=== PATIENT | male | born 1950 | race Caucasian/White ===

== ENCOUNTER 2018-03-15 17:33 | Inpatient (IN) | payer MEDICARE, OTHER ==
[2018-03-15 18:39] LABS: #Eosinphils 0.1 thou/uL (0.0-0.7); #Lymphocytes 1.1 thou/uL (1.20-3.40); #Monocytes 0.6 thou/uL (0.11-0.59); #Neutrophils 7.2 thou/uL (1.40-6.50); %Basophils 0.5 % (0.0-1.0); %Eosinophils 0.7 % (0.0-10.0); %Monocytes 6.2 % (0.0-10.0); %Neutrophils 80.6 % (42.0-75.0); Hemoglobin 14.5 g/dL (14.0-18.0); Mean Corpuscular HGB CONC 33.5 g/dL (32.0-36.0); Mean Corpuscular Hemoglobin 30.8 pg (27.0-31.0); Mean Corpuscular Volume 91.8 fL (78.0-98.0); Platelet Count 227 thou/uL (130-400); RBC Distribution Width 13.2 % (11.5-14.5); Red Blood Cell (RBC) Count 4.71 mill/uL (4.70-6.10)
[2018-03-15 18:47] LABS: PTT 29.3 SEC (22.9-36.1); Prothrombin Time 13.2 SEC (12.0-14.7)
[2018-03-15 18:54] LABS: ALT (SGPT) 19 U/L (8-55); AST (SGOT) 17 U/L (5-34); Albumin 3.9 g/dL (3.4-4.8); Alkaline Phosphatase 107 U/L (40-150); Anion Gap 13 mmol/L (10-20); BUN (Urea Nitrogen) 13 mg/dL (8.4-25.7); Bilirubin, Total 0.7 mg/dL (0.2-1.2); Calc. Creatinine Clearance 0 mL/min (70-130); Calcium 9.3 mg/dL (7.8-10.44); Carbon Dioxide 24 mmol/L (23-31); Chloride 100 mmol/L (98-107); Estimated GFR-MDRD 74; Globulin 3.1 g/dL (2.4-3.5); Glucose 97 mg/dL (80-115); Potassium 4.6 mmol/L (3.5-5.1); Sodium 132 mmol/L (136-145)
[2018-03-15] MEDS ORDERED: Ondansetron PF 4 MG/2 ML Vial IVP PRN (23:28)
[2018-03-15] MEDS ORDERED: Acetaminophen 325 MG TAB PO PRN (23:28)
[2018-03-15] MEDS ORDERED: Ondansetron ODT 4 MG TAB SL PRN (23:28)
[2018-03-15] MEDS ORDERED: Sodium Chloride 0.9% 1,000 ML IV SCH (23:30)
[2018-03-15 23:40] VITALS: BMI 25.0
[2018-03-16] MEDS ORDERED: diphenhydrAMINE 50 MG/ML VIAL IVP PRN (02:16)
[2018-03-16] MEDS ORDERED: Albuterol Sulfate 1.25 MG/3 ML NEB NEB PRN (02:19)
[2018-03-16] MEDS: Famotidine/PF 20 mg/2ml Vial SLOW IVP SCH ×2 (08:39→20:42)
[2018-03-16] MEDS: NIFEdipine XL 60 MG TAB PO SCH (08:39)
[2018-03-16] MEDS: Nebivolol HCl 5 MG TAB PO SCH (08:39)
[2018-03-16] MEDS ORDERED: Non-Formulary Item 1 EACH (Fluticasone/Vilanterol [Breo Ellipta 200-25 Mcg Inh] 1 PUFF) INH SCH (09:00)
[2018-03-16] MEDS: Ipratropium Bromide 2.5 ml Neb NEB SCH ×3 (13:38→23:17)
--- NOTE | 2018-03-16 14:42 | HP ---
PRIMARY CARE PHYSICIAN: Dr. Richardson CODE STATUS: Full code. TIME OF EVALUATION: 2 a.m. CHIEF COMPLAINT: Tongue swelling. HISTORY OF PRESENT ILLNESS: This is a 67-year-old male patient with past medical history of hypertension; previous history of angioedema, on benazepril; came to the hospital after having swelling of the throat and the tongue that started about 2 a.m. The patient visited his primary care doctor, who sent him to the ER, symptoms are severe, likely triggered by ALEXANDRO inhibitor allergy. No alleviating factors. Symptoms are being improved by itself. REVIEW OF SYSTEMS: CONSTITUTIONAL: No fever, chills, or generalized weakness. RESPIRATORY: No cough, sputum production, or shortness of breath. The patient has tongue swelling. CARDIOVASCULAR: No chest pain or palpitation. GASTROINTESTINAL: No nausea. No vomiting, diarrhea, or abdominal pain. AUTHORS MOTIVATIONAL: No dizziness, headache, or feeling lightheaded. GENITOURINARY: No burning on urination. EXTREMITIES: No leg swelling. All other systems were reviewed and negative, except for the findings as mentioned above. PAST MEDICAL HISTORY: As mentioned in the HPI. FAMILY HISTORY: Father with lung cancer. Mother with CVA. PAST SURGICAL HISTORY: Left knee surgery, hernia repair. PSYCHIATRIC HISTORY: No previous psych history. SOCIAL HISTORY: The patient drinks every day, less than 5 drinks per day. The patient is a former smoker. ALLERGIES: KNOWN ALLERGIES TO ALEXANDRO INHIBITOR REPORTED MEDICATIONS: Bystolic, nifedipine. PHYSICAL EXAMINATION: VITAL SIGNS: Blood pressure 179/91 with a heart rate 73, respiratory rate 16, temperature 98.3, pain 0/10, and oxygen saturation 97% on room air. GENERAL APPEARANCE: The patient is alert, oriented, not in acute distress. HEENT: Normal conjunctivae. Moist oral mucosa. Anicteric. NECK: No JVD. The patient has tongue swelling that has improved. RESPIRATORY: Bilateral air entry. No rales. No wheezing. Symmetric expansion. CARDIOVASCULAR: Normal rate and regular rhythm. No murmurs. No gallop. No edema. ABDOMEN: Soft. Normal bowel sounds. MUSCULOSKELETAL: He has baseline range of motion and strength. No tenderness. SKIN: Warm, intact. No pallor. No rash. No redness. EXTREMITIES: Peripheral pulses are present. Capillary refill seems to be intact. NEUROLOGIC: No evidence of any new focal weakness. Baseline speech. Cranial nerves seems to be intact. PSYCHIATRIC: The patient is in good mood. No anxiety. Oriented. Optimal judgement. LABORATORY DATA: White count 9.0, hemoglobin 14.5, platelets 237. Coagulation, PT 13.2, INR 1.0, PTT 39.3. Chemistry, sodium 132, potassium 4.3, chloride 100, carbon dioxide 24, anion gap 13, BUN 13, creatinine 1.0, GFR 94, glucose 97, calcium 9.3, total bilirubin 0.7. AST 17, ALT 19, alkaline phosphatase 107. Serum total protein 7.0, albumin 3.9, globulin 3.1, albumin/globulin ratio is 1.3. Complement C4 is 16.9. ASSESSMENT AND PLAN: The patient will be placed in the hospital with the following medical problems: 1. Angioedema, likely secondary to ALEXANDRO inhibitors. The patient has improved. We will continue to monitor. Hold ALEXANDRO inhibitors. 2. Benign prostatic hypertrophy, this problem is chronic, seems to be stable, reconcile home medications, adjust treatment as needed. 3. Hyperlipidemia. Reconcile home medications. Continue atorvastatin. Low cholesterol diet is advised. 4. Hypertension, that is uncontrolled, reconcile home medications, adjust treatment as needed. 5. Deep vein thrombosis prophylaxis. Job ID: [id number]
--- NOTE | 2018-03-16 14:49 | PDOC.PN ---
- Subjective Encounter Start Date: 03/16/18 Encounter Start Time: 14:30 Subjective: f/u for angioedema after taking Benazepril for 6yrs. Received -: Solumedrol, Benadryl and Pepcid. Feels much better and tongue -: swelling resolved. No CP, SOB - Objective MAR Reviewed: Yes Vital Signs & Weight: Vital Signs (12 hours) Temp Pulse Resp BP Pulse Ox 03/16/18 13:38 67 16 03/16/18 11:42 98.1 F 75 18 158/77 H 97 03/16/18 08:24 98 F 74 18 167/82 H 97 03/16/18 04:00 98.8 F 73 19 155/83 H 95 Weight Weight 174 lb 6.4 oz I&O: 03/15/18 03/16/18 03/17/18 06:59 06:59 06:59 Intake Total 1250 Output Total 750 Balance 500 Result Diagrams: 03/15/18 18:05 03/15/18 18:05 Additional Labs: Laboratory Tests 03/15/18 18:05 Complement C4 16.90 EKG Reviewed by me: Yes (Tele - SR) Phys Exam - Physical Examination Constitutional: NAD no glossal edema HEENT: PERRLA, sclera anicteric, oral pharynx no lesions mild edema in submandibular region Neck: no nodes, no JVD, supple, full ROM Respiratory: no wheezing, no rales, no rhonchi, clear to auscultation bilateral S1, S2 Cardiovascular: RRR, no significant murmur, no rub, gallop Gastrointestinal: soft, non-tender, no distention, positive bowel sounds Musculoskeletal: no edema, pulses present Neurological: normal sensation, moves all 4 limbs Psychiatric: normal affect, A&O x 3 Skin: normal turgor, cap refill <2 seconds Dx/Plan (1) Angioedema Code(s): T78.3XXA - ANGIONEUROTIC EDEMA, INITIAL ENCOUNTER Status: Acute Comment: Secondary to ALEXANDRO-i, continue off all ALEXANDRO-i and ARB's, continue Solumedrol, Benadryl and Pepcid, improving (2) HTN (hypertension) Code(s): I10 - ESSENTIAL (PRIMARY) HYPERTENSION Status: Chronic Qualifiers: Hypertension type: essential hypertension Qualified Code(s): I10 - Essential (primary) hypertension Comment: Continue Bystolic and Nifedipine, add Hydralazine 25mg BID (3) COPD (chronic obstructive pulmonary disease) Status: Chronic Comment: No exacerbation, continue pulmonary supportive measures (4) CAD (coronary artery disease) Code(s): I25.10 - ATHSCL HEART DISEASE OF [place] CORONARY ARTERY W/O ANG PCTRS Status: Chronic Comment: Continue Lipitor, Bystolic - Plan plan discussed w/ family, out of bed/ambulate Stable currently -: Continue Solumedrol another 24h -: Continue Pepcid/Benadryl -: Start Hydralazine 25mg BID -: Likely home in am * .
[2018-03-16] MEDS: Mometasone/Formoterol 120 PUFF INHALER INH SCH (19:20)
[2018-03-16] MEDS: hydrALAZINE 25 MG TAB PO SCH (20:42)
[2018-03-16] MEDS ORDERED: Aspirin 325 MG TAB PO SCH (21:00)
[2018-03-16] MEDS ORDERED: Non-Formulary Item 1 EACH (Tiotropium Bromide [Spiriva Respimat] 2 PUFF) INH SCH (21:00)
[2018-03-16] MEDS ORDERED: Atorvastatin Calcium 40 MG TAB PO SCH (21:00)
[2018-03-16] MEDS ORDERED: Latanoprost 0.005% Ophth Soln 2.5 ml Bottle R EYE SCH (21:00)
[2018-03-16] MEDS ORDERED: Tamsulosin HCl 0.4 MG CAP PO SCH (21:00)
[2018-03-17] MEDS: Ipratropium Bromide 2.5 ml Neb NEB SCH (07:08)
[2018-03-17] MEDS: Mometasone/Formoterol 120 PUFF INHALER INH SCH (07:09)
[2018-03-17 07:36] VITALS: BP 174/85; TEMP 97.8
[2018-03-17] MEDS: Nebivolol HCl 5 MG TAB PO SCH (08:08)
[2018-03-17] MEDS: hydrALAZINE 25 MG TAB PO SCH (08:08)
[2018-03-17] MEDS: Famotidine/PF 20 mg/2ml Vial SLOW IVP SCH (08:08)
[2018-03-17] MEDS: NIFEdipine XL 60 MG TAB PO SCH (08:09)
--- NOTE | 2018-03-18 06:50 | DIS ---
DATE OF ADMISSION: 03/15/2018 DATE OF DISCHARGE: 03/17/2018 DISCHARGE DIAGNOSES: 1. Angioedema secondary to ALEXANDRO inhibitors, resolving. 2. Hypertension, stable. 3. Chronic obstructive pulmonary disease, stable. 4. Coronary artery disease, chronic, and stable. PERTINENT LAB AND X-RAY FINDINGS: Complete metabolic profile within normal limits. CBC showed a white blood cell count of 9.0, hemoglobin 14.5, hematocrit 43, platelet count 227, with 81% neutrophils. C4 level 16.9. CONSULTATIONS: None. HOSPITAL COURSE: The patient was admitted to the telemetry unit after initially presenting with tongue and throat swelling in the context of ALEXANDRO inhibitor use. The patient was treated initially with IV Solu-Medrol, intravenous normal saline, Benadryl, Pepcid, and given general pulmonary supportive measures. The patient did not show airway compromise, however, was observed due to the potential for airway compromise. The patient was discontinued on all ALEXANDRO inhibitors and ARBs with instructions to discontinue these medications indefinitely. The patient transitioned from Solu-Medrol to prednisone with a prednisone tapering regimen for discharge. The patient was able to tolerate regular oral intake and maintain his airway with O2 saturations greater than 90% on room air. Glossal edema had resolved, and the patient remained clinically stable. I have examined the patient at the time of discharge and discussed followup instructions. The patient overall is clinically stable and ready for discharge on 03/17/2018. DISCHARGE MEDICATIONS: 1. Enteric-coated aspirin 325 mg p.o. at bedtime. 2. Lipitor 40 mg p.o. at bedtime. 3. Breo Ellipta 200/25 mcg one puff inhaled daily. 4. Xalatan 0.005% ophthalmic solution 1 drop to the right eye at bedtime. 5. Bystolic 5 mg p.o. daily. 6. Nifedipine extended release 60 mg p.o. daily. 7. Flomax 0.4 mg p.o. at bedtime. 8. Spiriva Respimat 2 puffs inhaled at bedtime. 9. Benadryl 25 mg p.o. q.6 hours p.r.n. 10. Hydralazine 25 mg p.o. b.i.d. 11. Prednisone 10 mg, take 2 tablets p.o. b.i.d. x3 days, followed by 3 tablets p.o. daily x3 days, followed by 2 tablets p.o. daily x3 days. FOLLOWUP: The patient is to follow up with his primary care provider, Dr. Terrie Richardson within 7 days of discharge. CONDITION ON DISCHARGE: Stable. ACTIVITY: Ad jerzy. DIET: Heart healthy. CODE STATUS: Full. DISPOSITION: Home on 03/17/2018. Job ID: [id number]
== END 2018-03-17 10:55 | disposition home or self-care (01) | DRG 916 ==
LOC: ERS 17:33 → 2NO 21:06
PROVIDERS: ADMIT Internal Medicine; ATTEND Internal Medicine
DX: T78.3XXA Angioneurotic edema, initial encounter (principal); T46.4X5A Adverse effect of angiotensin-converting-enzyme inhibitors, initial encounter; Y92.9 Unspecified place or not applicable; I10 Essential (primary) hypertension; J44.9 Chronic obstructive pulmonary disease, unspecified; I25.10 Atherosclerotic heart disease of native coronary artery without angina pectoris; Z82.3 Family history of stroke; Z80.1 Family history of malignant neoplasm of trachea, bronchus and lung; N40.0 Benign prostatic hyperplasia without lower urinary tract symptoms; E78.5 Hyperlipidemia, unspecified
CPT/HCPCS: 36415; 80053; 85025; 85610; 85730; 86160; 86161; 86850; 86900; 86901; 94640; J1200; J2920; S0028

== ENCOUNTER 2018-10-17 13:38 | Outpatient (CLI) | payer MEDICARE, OTHER ==
--- NOTE | 2018-10-17 15:54 | MRI ---
MRI PELVIS/PROSTATE WITHOUT AND WITH CONTRAST: Date: 10/17/18 HISTORY: Prostate cancer. TECHNIQUE: Multiplanar, multisequence MR images were obtained in the prostate without and with contrast. FINDINGS: Mild hypertrophy of the central gland is seen consistent with BPH. No suspicious low T2 signal lesion is seen within the prostate. No restricted diffusion or low signal on the ADC map is seen in the per ipheral zone of the prostate. The seminal vesicles are intact. The neurovascular bundles are intact. No pelvic adenopathy is seen. Scattered diverticula seen in the visualized colon. No marrow signal abnormality is present. IMPRESSION: PI-RADS Category 2 - low likelihood that a clinically significant cancer is present. POS: C
== END 2018-10-17 13:39 | disposition home or self-care (01) ==
LOC: TBSIIMAG 13:38
PROVIDERS: ATTEND Urology
DX: C61 Malignant neoplasm of prostate (principal)
CPT/HCPCS: 72197; 82565

== ENCOUNTER 2020-03-18 12:43 | Outpatient (CLI) | payer MEDICARE, OTHER ==
[~2020-03-18 12:43] MED LIST: Magnevist 469MG/ML 20 ML VIAL ONE
--- NOTE | 2020-03-19 08:59 | MRI ---
MRI PELVIS WITH AND WITHOUT IV CONTRAST WITH 3D POST PROCESSING ON INDEPENDENT WORK STATION: (prostate) HISTORY: Prostate cancer. COMPARISON: 10/17/2018. FINDINGS: The prostate measures 4.5 x 4.9 x 4 cm with a volume of 46 cc. No focal abnormal area of restricted diffusion is seen in the peripheral zone to suggest malignant pr ocess. No lentiform area of abnormally decreased T2 signal is noted in the transitional zone to suggest a ma lignant process. No focal articular enhancing mass is seen and the prostatic capsule is intact. The seminal vesicles are intact. No pelvic lymphadenopathy is noted. The pelvic sidewall is normal. Visualized portions of the colon demonstrate diverticular disease. No abnormal areas of signal replacement are seen on the T1 weighted sequences of the pelvis to sugges t osseous metastatic disease. IMPRESSION: PIRADS 2: Low (clinically significant prostate cancer is unlikely to be present). POS: OFF
--- NOTE | 2020-03-21 05:53 | MRI ---
MRI PELVIS PROSTATE WITH AND WITHOUT IV CONTRAST WITH 3D POST PROCESSING ON INDEPENDENT WORK STATION: HISTORY: Prostate cancer. COMPARISON: 10/17/2018. FINDINGS: The prostate measures 4.5 x 4.9 x 4 cm with a volume of 46 cc. There is a focal 1 cm area of restricted diffusion in the peripheral zone of the prostatic apex on th e right. No definite evidence of neurovascular bundle involvement is seen. No lentiform area of abnormally decreased T2 signal is noted in the transition zone to suggest malign ant process. The seminal vesicles are intact. No pelvic lymphadenopathy is seen. The pelvic sidewall is normal. Visualized portions of the colon demonstrate diverticular disease. No abnormal areas of signal replacement are seen on the T1 weighted sequences of the pelvis to sugges t osseous metastatic disease. IMPRESSION: PIRADS 4: high (clinically significant cancer is likely). POS: AH
== END 2020-03-18 12:44 | disposition home or self-care (01) ==
LOC: TBSIIMAG 12:43
PROVIDERS: ATTEND Urology
DX: C61 Malignant neoplasm of prostate (principal)
CPT/HCPCS: 72197; 82565; A9579

== ENCOUNTER 2020-05-08 05:48 | Day surgery (SDC) | payer MEDICARE ==
[2020-05-07 09:31] VITALS: BMI 24.8
[2020-05-08] MEDS ORDERED: Fleet Enema 133 ML BOT FS SCH ×2 (06:30→07:00)
[2020-05-08] MEDS ORDERED: Sodium Chloride 0.9% 100 ML ONE (06:33)
[2020-05-08] MEDS ORDERED: cefTRIAXone\\ROCEPHIN 1 GM VIAL ONE (06:33)
[2020-05-08] MEDS ORDERED: Fentanyl 100 MCG/2 ML VIAL ONE (07:03)
[2020-05-08] MEDS ORDERED: Midazolam HCl 2 mg/2 ml Vial ONE (07:03)
[2020-05-08] MEDS ORDERED: PROPOFOL 200 MG/20 ML VIAL ONE (09:32)
[2020-05-08] MEDS ORDERED: Dexamethasone 20 MG/5 ML VIAL ONE (09:32)
[2020-05-08] MEDS ORDERED: Ondansetron PF 4 MG/2 ML Vial ONE (09:32)
== END 2020-05-08 09:28 | disposition home or self-care (01) ==
LOC: SDC 05:48
PROVIDERS: ATTEND Urology
PROC: 0VB03ZX Excision of Prostate, Percutaneous Approach, Diagnostic (ICD-10-PCS; principal; 2020-05-08)
DX: C61 Malignant neoplasm of prostate (principal); J44.9 Chronic obstructive pulmonary disease, unspecified; I35.0 Nonrheumatic aortic (valve) stenosis; E11.9 Type 2 diabetes mellitus without complications; I10 Essential (primary) hypertension; Z79.82 Long term (current) use of aspirin; Z79.899 Other long term (current) drug therapy; Z88.8 Allergy status to other drugs, medicaments and biological substances
CPT/HCPCS: 88305; 88341; 88342; J0696; J1100; J2250; J2405; J2704; J3010; J3490

== ENCOUNTER 2021-08-11 13:06 | Outpatient (CLI) | payer MEDICARE, OTHER | END 2021-08-11 13:07 | disposition home or self-care (01) | LOC: RAD 13:06 | PROVIDERS: ATTEND Internal Medicine Critical Care Medicine | DX: R06.00 Dyspnea, unspecified (principal); R91.8 Other nonspecific abnormal finding of lung field; J98.4 Other disorders of lung | CPT/HCPCS: 71046 ==

== ENCOUNTER 2021-09-08 11:37 | Outpatient (CLI) | payer MEDICARE, OTHER | END 2021-09-08 11:38 | disposition home or self-care (01) | LOC: RAD 11:37 | PROVIDERS: ATTEND Internal Medicine Critical Care Medicine | DX: R06.00 Dyspnea, unspecified (principal) | CPT/HCPCS: 71046 ==

== ENCOUNTER 2021-10-03 19:43 | Inpatient (IN) | payer MEDICARE, OTHER ==
[2021-10-03] MEDS ORDERED: Nitroglycerin 2% Ointment 1 INCH/1 GM Packet ONE (20:37)
[2021-10-03] MEDS ORDERED: hydrALAZINE 20 MG/ML VIAL ONE (20:37)
[2021-10-03 20:49] LABS: #Basophils 0.1 thou/uL (0.0-0.2); #Monocytes 0.7 thou/uL (0.11-0.59); #Neutrophils 7.5 thou/uL (1.40-6.50); %Basophils 0.6 % (0.0-1.0); %Eosinophils 0.3 % (0.0-10.0); %Lymphocytes 19.2 % (21.0-51.0); Hemoglobin 13.2 g/dL (14.0-18.0); Mean Corpuscular HGB CONC 33.1 g/dL (32.0-36.0); Mean Corpuscular Hemoglobin 31.3 pg (27.0-31.0); Mean Corpuscular Volume 94.6 fL (78.0-98.0); Mean Platelet Volume 7.5 fL (7.4-10.4); Platelet Count 180 thou/uL (130-400); RBC Distribution Width 13.5 % (11.5-14.5); Red Blood Cell (RBC) Count 4.23 mill/uL (4.70-6.10); White Blood Cell (WBC) Count 10.2 thou/uL (4.8-10.8)
[2021-10-03 21:10] LABS: ALT (SGPT) 18 U/L (8-55); AST (SGOT) 14 U/L (5-34); Alkaline Phosphatase 86 U/L (40-110); Anion Gap 17 mmol/L (10-20); BUN (Urea Nitrogen) 52 mg/dL (8.4-25.7); Bilirubin, Total 0.4 mg/dL (0.2-1.2); CK (CPK) 49 U/L (30-200); Calc. Creatinine Clearance 0 mL/min (70-130); Calcium 9.2 mg/dL (7.8-10.44); Carbon Dioxide 20 mmol/L (23-31); Chloride 103 mmol/L (98-107); Glucose 96 mg/dL (83-110); Lipase 36 U/L (8-78); Potassium 4.5 mmol/L (3.5-5.1); Sodium 135 mmol/L (136-145)
[2021-10-03] MEDS ORDERED: Ibuprofen 800 MG TAB ONE (21:57)
[2021-10-03] MEDS ORDERED: HYDROcodone/Acetaminophen 5/325 mg Tablet PO PRN (22:04)
[2021-10-03] MEDS ORDERED: Zolpidem Tartrate 5 MG TAB PO PRN (22:04)
[2021-10-03] MEDS ORDERED: Bisacodyl 5 MG TAB PO PRN (22:04)
[2021-10-03] MEDS ORDERED: Ondansetron PF 4 MG/2 ML Vial IVP PRN (22:04)
[2021-10-03] MEDS ORDERED: Acetaminophen 325 MG TAB PO PRN (22:04)
[2021-10-03] MEDS ORDERED: hydrALAZINE 20 MG/ML VIAL SLOW IVP PRN (22:11)
[2021-10-03] MEDS ORDERED: Sodium Chloride 0.9% 1,000 ML IV SCH (22:15)
[2021-10-03] MEDS ORDERED: Carvedilol 25 MG TAB PO SCH (22:30)
[2021-10-03] MEDS ORDERED: hydrALAZINE 25 MG TAB PO SCH (22:30)
[2021-10-03] MEDS ORDERED: Albuterol Sulfate 2.5 mg/0.5 ml Neb NEB PRN (22:41)
[2021-10-04] MEDS ORDERED: Sodium Chloride 0.9% 1,000 ML IV SCH (00:03)
[2021-10-04 03:39] LABS: Creatinine, Urine 74.43 mg/dL (63-166)
[2021-10-04 04:23] LABS: #Basophils 0.1 thou/uL (0.0-0.2); #Lymphocytes 2.8 thou/uL (1.20-3.40); #Neutrophils 6.6 thou/uL (1.40-6.50); %Basophils 0.5 % (0.0-1.0); %Eosinophils 0.4 % (0.0-10.0); %Lymphocytes 26.5 % (21.0-51.0); %Neutrophils 62.6 % (42.0-75.0); Hemoglobin 11.7 g/dL (14.0-18.0); Mean Corpuscular HGB CONC 32.3 g/dL (32.0-36.0); Mean Corpuscular Hemoglobin 30.9 pg (27.0-31.0); Mean Corpuscular Volume 95.7 fL (78.0-98.0); Mean Platelet Volume 7.5 fL (7.4-10.4); Platelet Count 178 thou/uL (130-400); RBC Distribution Width 13.8 % (11.5-14.5); Red Blood Cell (RBC) Count 3.77 mill/uL (4.70-6.10); White Blood Cell (WBC) Count 10.5 thou/uL (4.8-10.8)
[2021-10-04 04:43] LABS: ALT (SGPT) 15 U/L (8-55); AST (SGOT) 10 U/L (5-34); Albumin 3.4 g/dL (3.4-4.8); Alkaline Phosphatase 70 U/L (40-110); Anion Gap 14 mmol/L (10-20); BUN (Urea Nitrogen) 49 mg/dL (8.4-25.7); Bilirubin, Total 0.5 mg/dL (0.2-1.2); Calc. Creatinine Clearance 38 mL/min (70-130); Calcium 8.7 mg/dL (7.8-10.44); Carbon Dioxide 20 mmol/L (23-31); Cardiac Risk 2.3 (Less than 4.5); Chloride 106 mmol/L (98-107); Cholesterol 110 mg/dl (< 200 Desired); Globulin 2.4 g/dL (2.4-3.5); Glucose 100 mg/dL (83-110); HDL Cholesterol 48 mg/dL (>60 Neg Risk); LDL Cholesterol, Calculated 46 mg/dL; Potassium 4.1 mmol/L (3.5-5.1); Protein, Total 5.8 g/dL (5.8-8.1); Sodium 136 mmol/L (136-145); Triglycerides 81 mg/dL (Less than 150)
[2021-10-04 04:44] LABS: Troponin I 0.014 ng/mL (< 0.028)
[2021-10-04] MEDS: Labetalol HCl 100 MG/20 ML VIAL SLOW IVP PRN ×2 (05:14→18:22)
[2021-10-04] MEDS ORDERED: Morphine 2 MG/ML VIAL SLOW IVP SCH (05:15)
[2021-10-04] MEDS: Nitroglycerin 2% Ointment 1 INCH/1 GM Packet TOP SCH ×3 (05:20→19:17)
[2021-10-04] MEDS: Mometasone 100 MCG/PUFF (1 INHALER) INH SCH ×2 (07:11→18:57)
[2021-10-04] MEDS: Aspirin Chewable 81 MG TAB PO SCH (09:30)
[2021-10-04] MEDS: Enoxaparin Sodium 30 MG/0.3 ML SYRINGE SC SCH (09:30)
[2021-10-04] MEDS: Carvedilol 25 MG TAB PO SCH ×2 (09:30→18:22)
[2021-10-04] MEDS: hydrALAZINE 25 MG TAB PO SCH ×3 (09:31→20:15)
[2021-10-04] MEDS: Famotidine 20 MG TAB PO SCH (09:32)
[2021-10-04] MEDS ORDERED: cloNIDine 0.1 MG TAB PO SCH ×2 (09:45→21:00)
[2021-10-04] MEDS: Sodium Chloride 0.9% 1,000 ML IV SCH (10:01)
[2021-10-04] MEDS ORDERED: Levalbuterol HCl 0.63 MG/3 ML NEB NEB PRN (10:45)
[2021-10-04] MEDS: Tamsulosin HCl 0.4 MG CAP PO SCH (20:16)
[2021-10-04] MEDS: Morphine 2 MG/ML VIAL SLOW IVP PRN (20:16)
[2021-10-04] MEDS: Atorvastatin Calcium 40 MG TAB PO SCH (20:16)
[2021-10-04] MEDS: cloNIDine 0.1 MG TAB PO SCH (20:16)
[2021-10-04] MEDS: Latanoprost 0.005% Ophth Soln 2.5 ml Bottle R EYE SCH (22:04)
[2021-10-04 22:29] LABS: Bilirubin Negative (Negative); Blood, Urine Negative (Negative); Clarity Clear (Clear); Glucose, Urine (Dipstick) Normal (Negative); Ketone, Urine Negative (Negative); Leukocyte Negative Leu/uL (Negative); Nitrite Negative (Negative); Protein, Urine (Dipstick) Negative (Neg-Trace); Specific Gravity, Urine 1.018 (1.002-1.036); Urobilinogen Normal mg/dL (Less than 2)
[2021-10-04] MEDS ORDERED: Minoxidil 2.5 MG TAB PO SCH (22:45)
[2021-10-05] MEDS ORDERED: Lorazepam 1 MG TAB PO PRN
[2021-10-05] MEDS: Sodium Chloride 0.9% 1,000 ML IV SCH (01:09)
[2021-10-05] MEDS: Morphine 2 MG/ML VIAL SLOW IVP PRN (03:07)
[2021-10-05] MEDS: Labetalol HCl 100 MG/20 ML VIAL SLOW IVP PRN ×3 (03:13→23:09)
[2021-10-05 05:06] LABS: #Eosinphils 0.1 thou/uL (0.0-0.7); #Monocytes 0.9 thou/uL (0.11-0.59); #Neutrophils 7.4 thou/uL (1.40-6.50); %Basophils 0.2 % (0.0-1.0); %Eosinophils 0.6 % (0.0-10.0); %Lymphocytes 19.1 % (21.0-51.0); %Monocytes 8.9 % (0.0-10.0); %Neutrophils 71.2 % (42.0-75.0); Mean Corpuscular Hemoglobin 30.9 pg (27.0-31.0); Mean Corpuscular Volume 96.6 fL (78.0-98.0); Mean Platelet Volume 7.3 fL (7.4-10.4); Platelet Count 179 thou/uL (130-400); RBC Distribution Width 13.7 % (11.5-14.5); Red Blood Cell (RBC) Count 3.58 mill/uL (4.70-6.10); White Blood Cell (WBC) Count 10.4 thou/uL (4.8-10.8)
[2021-10-05] MEDS: Nitroglycerin 2% Ointment 1 INCH/1 GM Packet TOP SCH ×3 (05:29→22:13)
[2021-10-05 05:33] LABS: Anion Gap 14 mmol/L (10-20); BUN (Urea Nitrogen) 37 mg/dL (8.4-25.7); Calc. Creatinine Clearance 49 mL/min (70-130); Calcium 8.2 mg/dL (7.8-10.44); Carbon Dioxide 18 mmol/L (23-31); Chloride 110 mmol/L (98-107); Glucose 109 mg/dL (83-110); Magnesium 1.9 mg/dL (1.6-2.6); Potassium 4.3 mmol/L (3.5-5.1); Sodium 138 mmol/L (136-145)
[2021-10-05 05:36] LABS: Iron 41 ug/dL (65-175); Iron Binding Capacity, Total 220 mcg/dL (261-462)
[2021-10-05 05:50] LABS: Ferritin 129.47 ng/mL (22-322)
[2021-10-05 05:51] LABS: Vitamin D, 25 Hydroxy 21.9 ng/ml (> 30.0)
[2021-10-05] MEDS ORDERED: niCARdipine 50 MG in Sodium Chloride 0.9% 250 ML 250 ML IVPB SCH (06:00)
[2021-10-05] MEDS: Mometasone 100 MCG/PUFF (1 INHALER) INH SCH ×2 (06:48→18:37)
[2021-10-05] MEDS: niCARdipine 50 MG, Admixture Fee 1 EACH in Sodium Chloride 0.9% 250 ML 230 ML IVPB SCH ×4 (06:50→23:11)
[2021-10-05] MEDS ORDERED: niCARdipine 50 MG in Sodium Chloride 0.9% 250 ML 230 ML IVPB SCH (07:00)
[2021-10-05] MEDS: Aspirin Chewable 81 MG TAB PO SCH (08:30)
[2021-10-05] MEDS: Minoxidil 2.5 MG TAB PO SCH (08:31)
[2021-10-05] MEDS: hydrALAZINE 25 MG TAB PO SCH ×3 (08:32→20:18)
[2021-10-05] MEDS: cloNIDine 0.1 MG TAB PO SCH ×2 (08:32→20:18)
[2021-10-05] MEDS: Famotidine 20 MG TAB PO SCH (08:33)
[2021-10-05] MEDS: Carvedilol 25 MG TAB PO SCH ×2 (08:33→17:17)
[2021-10-05] MEDS: Enoxaparin Sodium 30 MG/0.3 ML SYRINGE SC SCH (08:34)
[2021-10-05] MEDS ORDERED: Furosemide 40 MG/4 ML VIAL SLOW IVP SCH (11:15)
[2021-10-05] MEDS ORDERED: NIFEdipine XL 30 MG TAB PO SCH (11:15)
[2021-10-05] MEDS: Furosemide 20 MG/2 ML VIAL SLOW IVP SCH (14:50)
[2021-10-05] MEDS ORDERED: Electrolyte Replacement Protocol 1 EACH FS PRN (18:00)
[2021-10-05] MEDS ORDERED: Lorazepam 2 MG/ML VIAL IM PRN (18:00)
[2021-10-05] MEDS ORDERED: Ondansetron ODT 4 MG TAB PO PRN (18:00)
[2021-10-05] MEDS ORDERED: Magnesium 2 GM/50 ML(in water) 2 GM in Premix Bag 1 BAG IVPB SCH (18:15)
[2021-10-05] MEDS: Lorazepam 1 MG TAB PO SCH ×4 (18:34→23:09)
[2021-10-05] MEDS: Thiamine HCl 200 MG/2 ML VIAL SLOW IVP SCH (18:35)
[2021-10-05] MEDS: Latanoprost 0.005% Ophth Soln 2.5 ml Bottle R EYE SCH (20:19)
[2021-10-05] MEDS: Atorvastatin Calcium 40 MG TAB PO SCH (20:19)
[2021-10-05] MEDS: Tamsulosin HCl 0.4 MG CAP PO SCH (20:19)
[2021-10-06 01:58] LABS: Actual Bicarbonate (HCO3a) 18.6 mEq/L (22-28); Base Excess (BEa) -6.5 mEq/L (-2.0 to +3.0); CO2 Tension 35.6 mmHg (35.0-45.0); Calcium, Ionized (arterial) 1.19 mmol/L (1.12-1.30); Carboxyhemoglobin (COHb) 0.6 gm% (0.0-3.0); Hemoglobin (Hb) 12.2 g/dL (14.0-18.0); O2 Tension (PaO2), arterial 70.6 mmHg (> 70.0); Potassium - ABG Lab 4.27 mmol/L (3.70-5.30); pH, Arterial 7.34 (7.35-7.45)
[2021-10-06 01:59] LABS: Puncture Site RRA
[2021-10-06] MEDS ORDERED: Lorazepam 2 MG/ML VIAL ONE (02:51)
[2021-10-06] MEDS ORDERED: Furosemide 40 MG/4 ML VIAL IVP SCH (03:04)
[2021-10-06] MEDS ORDERED: Lorazepam 2 MG/ML VIAL SLOW IVP PRN (03:45)
[2021-10-06] MEDS ORDERED: Fentanyl BOLUS 250 ML IVPB PRN (03:45)
[2021-10-06] MEDS ORDERED: Propofol BOLUS 1,000 MG/100 ML VIAL IV PRN (03:45)
[2021-10-06] MEDS ORDERED: DISCONTINUE PREVIOUS NARCOTIC PAIN MEDICATIONS AND BENZODIAZEPINES FS SCH (03:45)
[2021-10-06] MEDS ORDERED: Fentanyl CADD 100 ML IV SCH (03:45)
[2021-10-06 04:01] LABS: #Eosinphils 0.1 thou/uL (0.0-0.7); #Lymphocytes 0.8 thou/uL (1.20-3.40); #Monocytes 0.9 thou/uL (0.11-0.59); #Neutrophils 11.9 thou/uL (1.40-6.50); %Basophils 0.2 % (0.0-1.0); %Eosinophils 0.5 % (0.0-10.0); %Lymphocytes 5.9 % (21.0-51.0); %Monocytes 6.8 % (0.0-10.0); %Neutrophils 86.6 % (42.0-75.0); Hemoglobin 11.5 g/dL (14.0-18.0); Mean Corpuscular HGB CONC 32.7 g/dL (32.0-36.0); Mean Corpuscular Hemoglobin 31.2 pg (27.0-31.0); Mean Corpuscular Volume 95.5 fL (78.0-98.0); Mean Platelet Volume 7.3 fL (7.4-10.4); Platelet Count 151 thou/uL (130-400); RBC Distribution Width 13.6 % (11.5-14.5); Red Blood Cell (RBC) Count 3.67 mill/uL (4.70-6.10); White Blood Cell (WBC) Count 13.7 thou/uL (4.8-10.8)
[2021-10-06 04:36] LABS: Anion Gap 15 mmol/L (10-20); BUN (Urea Nitrogen) 43 mg/dL (8.4-25.7); Calc. Creatinine Clearance 29 mL/min (70-130); Calcium 8.5 mg/dL (7.8-10.44); Carbon Dioxide 19 mmol/L (23-31); Chloride 108 mmol/L (98-107); Glucose 162 mg/dL (83-110); Magnesium 2.5 mg/dL (1.6-2.6); Potassium 5.1 mmol/L (3.5-5.1); Sodium 137 mmol/L (136-145)
[2021-10-06] MEDS ORDERED: Lorazepam 1 MG TAB PO SCH (06:00)
[2021-10-06] MEDS: Furosemide 20 MG/2 ML VIAL SLOW IVP SCH ×2 (06:28→13:32)
[2021-10-06] MEDS: Nitroglycerin 2% Ointment 1 INCH/1 GM Packet TOP SCH ×3 (06:28→21:00)
[2021-10-06] MEDS: Mometasone 100 MCG/PUFF (1 INHALER) INH SCH ×2 (07:40→18:29)
[2021-10-06 07:48] LABS: Actual Bicarbonate (HCO3a) 18.6 mEq/L (22-28); Base Excess (BEa) -5.8 mEq/L (-2.0 to +3.0); CO2 Tension 33.3 mmHg (35.0-45.0); Calcium, Ionized (arterial) 1.17 mmol/L (1.12-1.30); Carboxyhemoglobin (COHb) 0.9 gm% (0.0-3.0); Hemoglobin (Hb) 12.7 g/dL (14.0-18.0); O2 Tension (PaO2), arterial 60.8 mmHg (> 70.0); pH, Arterial 7.37 (7.35-7.45)
[2021-10-06 07:57] LABS: ALV-art Gradient 182.775 mmHg (0-20); Puncture Site RRA
[2021-10-06] MEDS: Enoxaparin Sodium 30 MG/0.3 ML SYRINGE SC SCH (10:19)
[2021-10-06] MEDS: hydrALAZINE 25 MG TAB PO SCH ×3 (10:20→20:53)
[2021-10-06] MEDS: Famotidine 20 MG TAB PO SCH (10:20)
[2021-10-06] MEDS: Aspirin Chewable 81 MG TAB PO SCH (10:20)
[2021-10-06] MEDS: Folic Acid 1 MG TAB PO SCH (10:20)
[2021-10-06] MEDS: Minoxidil 2.5 MG TAB PO SCH (10:21)
[2021-10-06] MEDS: Multivit, Therapeutic 1 TAB PO SCH (10:21)
[2021-10-06] MEDS: NIFEdipine XL 30 MG TAB PO SCH (10:21)
[2021-10-06] MEDS: Morphine 2 MG/ML VIAL SLOW IVP PRN ×3 (10:55→17:04)
[2021-10-06] MEDS: cefTRIAXone\\ROCEPHIN 1 GM in Sodium Chloride 0.9% 100 ML IVPB SCH (10:55)
[2021-10-06] MEDS: Carvedilol 25 MG TAB PO SCH ×2 (11:12→17:04)
[2021-10-06] MEDS: cloNIDine 0.1 MG TAB PO SCH ×2 (11:13→20:52)
[2021-10-06] MEDS ORDERED: Succinylcholine 200 MG/10 ml SYRINGE FS ONE (11:55)
[2021-10-06] MEDS: Propofol 1,000 MG/100 ML VIAL IV PRN ×3 (13:05→22:58)
[2021-10-06] MEDS: methylPREDNISolone Sod Succ 40 MG VIAL IVP SCH ×2 (13:32→17:05)
[2021-10-06] MEDS ORDERED: Lorazepam 1 MG TAB PO PRN (18:00)
[2021-10-06] MEDS: Thiamine HCl 200 MG/2 ML VIAL SLOW IVP SCH (18:24)
[2021-10-06] MEDS: Latanoprost 0.005% Ophth Soln 2.5 ml Bottle R EYE SCH (20:51)
[2021-10-06] MEDS: Atorvastatin Calcium 40 MG TAB PO SCH (20:53)
[2021-10-06] MEDS: Tamsulosin HCl 0.4 MG CAP PO SCH (20:53)
[2021-10-06] MEDS: Sodium Chloride 0.9% 500 ML IV SCH (20:54)
[2021-10-07] MEDS: methylPREDNISolone Sod Succ 40 MG VIAL IVP SCH ×4 (00:22→17:47)
[2021-10-07 04:21] LABS: Anion Gap 19 mmol/L (10-20); BUN (Urea Nitrogen) 56 mg/dL (8.4-25.7); Calc. Creatinine Clearance 25 mL/min (70-130); Calcium 8.4 mg/dL (7.8-10.44); Carbon Dioxide 17 mmol/L (23-31); Chloride 105 mmol/L (98-107); Estimated GFR 19; Glucose 156 mg/dL (83-110); Potassium 4.5 mmol/L (3.5-5.1); Sodium 136 mmol/L (136-145)
[2021-10-07 04:25] LABS: Band 20 % (5-11); Hemoglobin 10.4 g/dL (14.0-18.0); Hypochromia SLIGHT = 6-15 cells (100X) (0-5/hpf); Lymphocytes 10 % (21-51); MDiff Complete? YES; Mean Corpuscular HGB CONC 32.6 g/dL (32.0-36.0); Mean Corpuscular Hemoglobin 31.3 pg (27.0-31.0); Mean Corpuscular Volume 96.1 fL (78.0-98.0); Mean Platelet Volume 8.4 fL (7.4-10.4); Neutrophil 70 % (42-75); Platelet Count 135 thou/uL (130-400); Platelet Morphology Comment Appears Adequate; RBC Distribution Width 13.6 % (11.5-14.5); Red Blood Cell (RBC) Count 3.31 mill/uL (4.70-6.10); White Blood Cell (WBC) Count 9.4 thou/uL (4.8-10.8)
[2021-10-07] MEDS: Nitroglycerin 2% Ointment 1 INCH/1 GM Packet TOP SCH ×3 (05:03→21:10)
[2021-10-07] MEDS: Furosemide 20 MG/2 ML VIAL SLOW IVP SCH (05:03)
[2021-10-07] MEDS: Propofol 1,000 MG/100 ML VIAL IV PRN (05:13)
[2021-10-07] MEDS ORDERED: Lorazepam 0.5 MG TAB PO SCH (06:00)
[2021-10-07] MEDS: Mometasone 100 MCG/PUFF (1 INHALER) INH SCH ×2 (07:10→18:52)
[2021-10-07 07:42] LABS: Actual Bicarbonate (HCO3a) 16.6 mEq/L (22-28); Base Excess (BEa) -8.5 mEq/L (-2.0 to +3.0); CO2 Tension 33.3 mmHg (35.0-45.0); Calcium, Ionized (arterial) 1.17 mmol/L (1.12-1.30); Carboxyhemoglobin (COHb) 0.2 gm% (0.0-3.0); Hemoglobin (Hb) 11.9 g/dL (14.0-18.0); O2 Tension (PaO2), arterial 75.4 mmHg (> 70.0); Potassium - ABG Lab 4.52 mmol/L (3.70-5.30); pH, Arterial 7.32 (7.35-7.45)
[2021-10-07 08:07] LABS: ALV-art Gradient 168.175 mmHg (0-20); Puncture Site RRA
[2021-10-07] MEDS ORDERED: Lactated Ringer's 1,000 ML IV SCH (08:30)
[2021-10-07] MEDS: Enoxaparin Sodium 30 MG/0.3 ML SYRINGE SC SCH (08:43)
[2021-10-07] MEDS: Aspirin Chewable 81 MG TAB PO SCH (08:43)
[2021-10-07] MEDS: NIFEdipine XL 30 MG TAB PO SCH (08:44)
[2021-10-07] MEDS: Folic Acid 1 MG TAB PO SCH (08:44)
[2021-10-07] MEDS: hydrALAZINE 25 MG TAB PO SCH ×3 (08:44→21:10)
[2021-10-07] MEDS: Multivit, Therapeutic 1 TAB PO SCH (08:45)
[2021-10-07] MEDS: Famotidine 20 MG TAB PO SCH (08:45)
[2021-10-07] MEDS: Minoxidil 2.5 MG TAB PO SCH (08:45)
[2021-10-07] MEDS: Carvedilol 25 MG TAB PO SCH ×2 (08:45→16:51)
[2021-10-07] MEDS: cefTRIAXone\\ROCEPHIN 1 GM in Sodium Chloride 0.9% 100 ML IVPB SCH (08:46)
[2021-10-07] MEDS: Sodium Bicarbonate 70 MEQ in Sodium Chloride 0.45% 1,000 ML IV SCH (09:07)
[2021-10-07] MEDS: Sodium Chloride 0.9% 500 ML IV SCH (12:06)
[2021-10-07] MEDS: Thiamine HCl 200 MG/2 ML VIAL SLOW IVP SCH (17:48)
[2021-10-07] MEDS ORDERED: Lorazepam 1 MG TAB PO PRN (18:00)
[2021-10-07] MEDS: Atorvastatin Calcium 40 MG TAB PO SCH (21:10)
[2021-10-07] MEDS: Latanoprost 0.005% Ophth Soln 2.5 ml Bottle R EYE SCH (21:10)
[2021-10-07] MEDS: Tamsulosin HCl 0.4 MG CAP PO SCH (21:11)
[2021-10-08] MEDS: methylPREDNISolone Sod Succ 40 MG VIAL IVP SCH ×3 (00:03→17:05)
[2021-10-08] MEDS: Sodium Bicarbonate 70 MEQ in Sodium Chloride 0.45% 1,000 ML IV SCH (00:03)
[2021-10-08] MEDS: Sodium Chloride 0.9% 500 ML IV SCH (04:44)
[2021-10-08] MEDS: Nitroglycerin 2% Ointment 1 INCH/1 GM Packet TOP SCH ×3 (05:06→22:04)
[2021-10-08] MEDS ORDERED: Lorazepam 0.5 MG TAB PO PRN (06:00)
[2021-10-08 07:13] LABS: #Lymphocytes 0.5 thou/uL (1.20-3.40); #Monocytes 0.4 thou/uL (0.11-0.59); %Eosinophils 0.2 % (0.0-10.0); %Lymphocytes 4.3 % (21.0-51.0); %Neutrophils 91.6 % (42.0-75.0); Hemoglobin 11.3 g/dL (14.0-18.0); Mean Corpuscular HGB CONC 32.9 g/dL (32.0-36.0); Mean Corpuscular Volume 94.2 fL (78.0-98.0); Mean Platelet Volume 7.7 fL (7.4-10.4); Platelet Count 197 thou/uL (130-400); RBC Distribution Width 13.6 % (11.5-14.5); Red Blood Cell (RBC) Count 3.65 mill/uL (4.70-6.10); White Blood Cell (WBC) Count 10.9 thou/uL (4.8-10.8)
[2021-10-08 07:31] LABS: Anion Gap 18 mmol/L (10-20); BUN (Urea Nitrogen) 88 mg/dL (8.4-25.7); Calc. Creatinine Clearance 21 mL/min (70-130); Calcium 8.8 mg/dL (7.8-10.44); Carbon Dioxide 19 mmol/L (23-31); Chloride 104 mmol/L (98-107); Estimated GFR 16; Glucose 160 mg/dL (83-110); Potassium 4.8 mmol/L (3.5-5.1); Sodium 136 mmol/L (136-145)
[2021-10-08] MEDS: Mometasone 100 MCG/PUFF (1 INHALER) INH SCH ×2 (07:46→19:12)
[2021-10-08] MEDS ORDERED: Albuterol Sulfate 2.5 mg/3 ml Neb NEB PRN (08:09)
[2021-10-08] MEDS ORDERED: Sodium Bicarbonate 70 MEQ in Sodium Chloride 0.45% 1,000 ML IV SCH (08:34)
[2021-10-08] MEDS ORDERED: Furosemide 40 MG/4 ML VIAL SLOW IVP SCH (08:45)
[2021-10-08] MEDS: cefTRIAXone\\ROCEPHIN 1 GM in Sodium Chloride 0.9% 100 ML IVPB SCH (10:03)
[2021-10-08] MEDS: Enoxaparin Sodium 30 MG/0.3 ML SYRINGE SC SCH (10:03)
[2021-10-08] MEDS: Aspirin Chewable 81 MG TAB PO SCH (10:44)
[2021-10-08] MEDS: hydrALAZINE 25 MG TAB PO SCH ×3 (10:45→20:18)
[2021-10-08] MEDS: Thiamine 100 MG TAB PO SCH (10:45)
[2021-10-08] MEDS: NIFEdipine XL 60 MG TAB PO SCH (10:53)
[2021-10-08] MEDS: Multivit, Therapeutic 1 TAB PO SCH (10:53)
[2021-10-08] MEDS: Famotidine 20 MG TAB PO SCH (10:53)
[2021-10-08] MEDS: Folic Acid 1 MG TAB PO SCH (10:53)
[2021-10-08] MEDS: Minoxidil 2.5 MG TAB PO SCH (10:53)
[2021-10-08] MEDS: Carvedilol 25 MG TAB PO SCH ×2 (10:55→17:05)
[2021-10-08] MEDS: Atorvastatin Calcium 40 MG TAB PO SCH (20:17)
[2021-10-08] MEDS: Tamsulosin HCl 0.4 MG CAP PO SCH (20:18)
[2021-10-08] MEDS: Latanoprost 0.005% Ophth Soln 2.5 ml Bottle R EYE SCH (22:04)
[2021-10-09 03:27] LABS: #Lymphocytes 0.9 thou/uL (1.20-3.40); #Monocytes 1.1 thou/uL (0.11-0.59); #Neutrophils 10.8 thou/uL (1.40-6.50); %Basophils 0.1 % (0.0-1.0); %Eosinophils 0.3 % (0.0-10.0); %Lymphocytes 6.9 % (21.0-51.0); %Monocytes 8.7 % (0.0-10.0); %Neutrophils 83.9 % (42.0-75.0); Hemoglobin 10.8 g/dL (14.0-18.0); Mean Corpuscular HGB CONC 33.9 g/dL (32.0-36.0); Mean Corpuscular Hemoglobin 31.8 pg (27.0-31.0); Mean Corpuscular Volume 93.8 fL (78.0-98.0); Mean Platelet Volume 7.5 fL (7.4-10.4); Platelet Count 192 thou/uL (130-400); RBC Distribution Width 13.5 % (11.5-14.5); Red Blood Cell (RBC) Count 3.38 mill/uL (4.70-6.10); White Blood Cell (WBC) Count 12.9 thou/uL (4.8-10.8)
[2021-10-09 03:49] LABS: Phosphorus 7.6 mg/dL (2.3-4.7)
[2021-10-09 03:52] LABS: Anion Gap 19 mmol/L (10-20); BUN (Urea Nitrogen) 109 mg/dL (8.4-25.7); Calc. Creatinine Clearance 21 mL/min (70-130); Calcium 8.7 mg/dL (7.8-10.44); Carbon Dioxide 19 mmol/L (23-31); Chloride 104 mmol/L (98-107); Estimated GFR 16; Glucose 168 mg/dL (83-110); Magnesium 3.3 mg/dL (1.6-2.6); Potassium 4.5 mmol/L (3.5-5.1); Sodium 137 mmol/L (136-145)
[2021-10-09] MEDS: methylPREDNISolone Sod Succ 40 MG VIAL IVP SCH (06:24)
[2021-10-09] MEDS: Nitroglycerin 2% Ointment 1 INCH/1 GM Packet TOP SCH ×3 (06:24→21:31)
[2021-10-09] MEDS: Mometasone 100 MCG/PUFF (1 INHALER) INH SCH ×2 (06:52→18:56)
[2021-10-09] MEDS ORDERED: Furosemide 40 MG/4 ML VIAL SLOW IVP SCH (08:15)
[2021-10-09] MEDS: Enoxaparin Sodium 30 MG/0.3 ML SYRINGE SC SCH (08:52)
[2021-10-09] MEDS: Multivit, Therapeutic 1 TAB PO SCH (08:53)
[2021-10-09] MEDS: Aspirin Chewable 81 MG TAB PO SCH (08:53)
[2021-10-09] MEDS: Folic Acid 1 MG TAB PO SCH (08:53)
[2021-10-09] MEDS: Thiamine 100 MG TAB PO SCH (08:53)
[2021-10-09] MEDS: NIFEdipine XL 60 MG TAB PO SCH (08:53)
[2021-10-09] MEDS: Famotidine 20 MG TAB PO SCH (08:54)
[2021-10-09] MEDS: hydrALAZINE 25 MG TAB PO SCH ×3 (08:54→20:34)
[2021-10-09] MEDS: Minoxidil 2.5 MG TAB PO SCH (08:54)
[2021-10-09] MEDS: Carvedilol 25 MG TAB PO SCH ×2 (08:54→17:46)
[2021-10-09] MEDS: Sevelamer Carbonate 800 MG TAB PO SCH ×2 (11:06→17:46)
[2021-10-09] MEDS: cefTRIAXone\\ROCEPHIN 1 GM in Sodium Chloride 0.9% 100 ML IVPB SCH (11:06)
[2021-10-09] MEDS: Tamsulosin HCl 0.4 MG CAP PO SCH (20:34)
[2021-10-09] MEDS: Atorvastatin Calcium 40 MG TAB PO SCH (20:34)
[2021-10-09] MEDS: Latanoprost 0.005% Ophth Soln 2.5 ml Bottle R EYE SCH (20:43)
[2021-10-10 03:55] LABS: #Lymphocytes 1.7 thou/uL (1.20-3.40); #Monocytes 1.5 thou/uL (0.11-0.59); #Neutrophils 7.2 thou/uL (1.40-6.50); %Basophils 0.2 % (0.0-1.0); %Eosinophils 0.3 % (0.0-10.0); %Lymphocytes 16.3 % (21.0-51.0); %Monocytes 14.6 % (0.0-10.0); %Neutrophils 68.6 % (42.0-75.0); Hemoglobin 10.1 g/dL (14.0-18.0); Mean Corpuscular HGB CONC 32.9 g/dL (32.0-36.0); Mean Corpuscular Volume 94.3 fL (78.0-98.0); Mean Platelet Volume 7.6 fL (7.4-10.4); Platelet Count 160 thou/uL (130-400); RBC Distribution Width 13.5 % (11.5-14.5); Red Blood Cell (RBC) Count 3.27 mill/uL (4.70-6.10); White Blood Cell (WBC) Count 10.5 thou/uL (4.8-10.8)
[2021-10-10 04:13] LABS: Anion Gap 16 mmol/L (10-20); BUN (Urea Nitrogen) 110 mg/dL (8.4-25.7); Calc. Creatinine Clearance 23 mL/min (70-130); Calcium 8.3 mg/dL (7.8-10.44); Carbon Dioxide 21 mmol/L (23-31); Chloride 106 mmol/L (98-107); Estimated GFR 18; Glucose 129 mg/dL (83-110); Sodium 139 mmol/L (136-145)
[2021-10-10] MEDS: Nitroglycerin 2% Ointment 1 INCH/1 GM Packet TOP SCH ×3 (05:31→21:07)
[2021-10-10] MEDS: Mometasone 100 MCG/PUFF (1 INHALER) INH SCH ×2 (06:56→18:39)
[2021-10-10] MEDS: hydrALAZINE 25 MG TAB PO SCH ×3 (08:11→21:04)
[2021-10-10] MEDS: NIFEdipine XL 60 MG TAB PO SCH (08:11)
[2021-10-10] MEDS: Multivit, Therapeutic 1 TAB PO SCH (08:13)
[2021-10-10] MEDS: Carvedilol 25 MG TAB PO SCH ×2 (08:13→17:23)
[2021-10-10] MEDS: Folic Acid 1 MG TAB PO SCH (08:13)
[2021-10-10] MEDS: Sevelamer Carbonate 800 MG TAB PO SCH ×3 (08:13→17:23)
[2021-10-10] MEDS: Aspirin Chewable 81 MG TAB PO SCH (08:13)
[2021-10-10] MEDS: Minoxidil 2.5 MG TAB PO SCH (08:13)
[2021-10-10] MEDS: Thiamine 100 MG TAB PO SCH (08:13)
[2021-10-10] MEDS: Famotidine 20 MG TAB PO SCH (08:13)
[2021-10-10] MEDS: Enoxaparin Sodium 30 MG/0.3 ML SYRINGE SC SCH (08:14)
[2021-10-10] MEDS: cefTRIAXone\\ROCEPHIN 1 GM in Sodium Chloride 0.9% 100 ML IVPB SCH (13:22)
[2021-10-10] MEDS: Atorvastatin Calcium 40 MG TAB PO SCH (21:03)
[2021-10-10] MEDS: Cefdinir 300 MG CAP PO SCH (21:04)
[2021-10-10] MEDS: Latanoprost 0.005% Ophth Soln 2.5 ml Bottle R EYE SCH (21:07)
[2021-10-10] MEDS: Tamsulosin HCl 0.4 MG CAP PO SCH (21:07)
[2021-10-11] MEDS ORDERED: Labetalol HCl 100 MG/20 ML VIAL SLOW IVP PRN (05:09)
[2021-10-11] MEDS: hydrALAZINE 20 MG/ML VIAL SLOW IVP PRN ×2 (05:31→11:30)
[2021-10-11] MEDS: Nitroglycerin 2% Ointment 1 INCH/1 GM Packet TOP SCH ×3 (06:04→20:55)
[2021-10-11 07:02] LABS: Anion Gap 17 mmol/L (10-20); BUN (Urea Nitrogen) 85 mg/dL (8.4-25.7); Calc. Creatinine Clearance 32 mL/min (70-130); Calcium 8.5 mg/dL (7.8-10.44); Carbon Dioxide 20 mmol/L (23-31); Chloride 107 mmol/L (98-107); Estimated GFR 26; Glucose 127 mg/dL (83-110); Potassium 4.2 mmol/L (3.5-5.1); Sodium 140 mmol/L (136-145)
[2021-10-11] MEDS: Mometasone 100 MCG/PUFF (1 INHALER) INH SCH ×2 (07:11→19:15)
[2021-10-11] MEDS: NIFEdipine XL 60 MG TAB PO SCH (10:01)
[2021-10-11] MEDS: Aspirin Chewable 81 MG TAB PO SCH (10:01)
[2021-10-11] MEDS: Famotidine 20 MG TAB PO SCH (10:01)
[2021-10-11] MEDS: Sevelamer Carbonate 800 MG TAB PO SCH ×3 (10:02→16:49)
[2021-10-11] MEDS: hydrALAZINE 25 MG TAB PO SCH ×3 (10:02→20:54)
[2021-10-11] MEDS: Folic Acid 1 MG TAB PO SCH (10:02)
[2021-10-11] MEDS: Thiamine 100 MG TAB PO SCH (10:02)
[2021-10-11] MEDS: Cefdinir 300 MG CAP PO SCH ×2 (10:02→20:54)
[2021-10-11] MEDS: Carvedilol 25 MG TAB PO SCH ×2 (10:02→16:49)
[2021-10-11] MEDS: Enoxaparin Sodium 30 MG/0.3 ML SYRINGE SC SCH (10:02)
[2021-10-11] MEDS: Minoxidil 10 MG TAB PO SCH (10:10)
[2021-10-11] MEDS: Multivit, Therapeutic 1 TAB PO SCH (10:10)
[2021-10-11] MEDS: Methocarbamol 500 MG TAB PO PRN (13:56)
[2021-10-11] MEDS ORDERED: Lidocaine 2% Viscous Solution 10 ML, Aluminum & Magnesium Hydroxide 30 ML SSW PRN (15:11)
[2021-10-11] MEDS ORDERED: Pantoprazole 40 MG VIAL IVP SCH (15:15)
[2021-10-11] MEDS: Tamsulosin HCl 0.4 MG CAP PO SCH (20:54)
[2021-10-11] MEDS: Atorvastatin Calcium 40 MG TAB PO SCH (20:55)
[2021-10-11] MEDS: Latanoprost 0.005% Ophth Soln 2.5 ml Bottle R EYE SCH (20:55)
[2021-10-12] MEDS: hydrALAZINE 20 MG/ML VIAL SLOW IVP PRN (01:38)
[2021-10-12] MEDS: Nitroglycerin 2% Ointment 1 INCH/1 GM Packet TOP SCH ×3 (05:43→21:44)
[2021-10-12 06:33] LABS: Phosphorus 3.2 mg/dL (2.3-4.7)
[2021-10-12 06:37] LABS: Anion Gap 17 mmol/L (10-20); BUN (Urea Nitrogen) 74 mg/dL (8.4-25.7); Calc. Creatinine Clearance 34 mL/min (70-130); Calcium 8.1 mg/dL (7.8-10.44); Carbon Dioxide 18 mmol/L (23-31); Chloride 105 mmol/L (98-107); Estimated GFR 29; Glucose 129 mg/dL (83-110); Potassium 3.9 mmol/L (3.5-5.1); Sodium 136 mmol/L (136-145)
[2021-10-12] MEDS: Mometasone 100 MCG/PUFF (1 INHALER) INH SCH ×2 (06:48→19:46)
[2021-10-12] MEDS: hydrALAZINE 25 MG TAB PO SCH ×3 (08:16→21:43)
[2021-10-12] MEDS: Enoxaparin Sodium 30 MG/0.3 ML SYRINGE SC SCH (08:16)
[2021-10-12] MEDS: Sevelamer Carbonate 800 MG TAB PO SCH ×3 (08:17→15:41)
[2021-10-12] MEDS: NIFEdipine XL 60 MG TAB PO SCH (08:17)
[2021-10-12] MEDS: Cefdinir 300 MG CAP PO SCH ×2 (08:17→21:43)
[2021-10-12] MEDS: Multivit, Therapeutic 1 TAB PO SCH (08:18)
[2021-10-12] MEDS: Carvedilol 25 MG TAB PO SCH ×2 (08:18→15:41)
[2021-10-12] MEDS: Aspirin Chewable 81 MG TAB PO SCH (08:18)
[2021-10-12] MEDS: Minoxidil 10 MG TAB PO SCH (08:18)
[2021-10-12] MEDS: Thiamine 100 MG TAB PO SCH (08:18)
[2021-10-12] MEDS: Pantoprazole 40 MG VIAL IVP SCH (08:19)
[2021-10-12] MEDS: Folic Acid 1 MG TAB PO SCH (08:19)
[2021-10-12] MEDS ORDERED: hydrOXYzine 25 MG TAB PO SCH (10:15)
[2021-10-12] MEDS ORDERED: Furosemide 40 MG/4 ML VIAL SLOW IVP SCH (12:45)
[2021-10-12] MEDS: Tamsulosin HCl 0.4 MG CAP PO SCH (21:43)
[2021-10-12] MEDS: Atorvastatin Calcium 40 MG TAB PO SCH (21:43)
[2021-10-12] MEDS: Latanoprost 0.005% Ophth Soln 2.5 ml Bottle R EYE SCH (21:44)
[2021-10-13] MEDS: Nitroglycerin 2% Ointment 1 INCH/1 GM Packet TOP SCH ×3 (06:21→22:33)
[2021-10-13] MEDS: Mometasone 100 MCG/PUFF (1 INHALER) INH SCH ×2 (06:36→18:21)
[2021-10-13 06:53] LABS: Anion Gap 16 mmol/L (10-20); BUN (Urea Nitrogen) 83 mg/dL (8.4-25.7); Calc. Creatinine Clearance 28 mL/min (70-130); Calcium 8.3 mg/dL (7.8-10.44); Carbon Dioxide 21 mmol/L (23-31); Chloride 103 mmol/L (98-107); Estimated GFR 23; Glucose 191 mg/dL (83-110); Potassium 4.3 mmol/L (3.5-5.1); Sodium 136 mmol/L (136-145)
[2021-10-13] MEDS: hydrALAZINE 25 MG TAB PO SCH ×3 (09:05→20:47)
[2021-10-13] MEDS: Carvedilol 25 MG TAB PO SCH (09:06)
[2021-10-13] MEDS: Cefdinir 300 MG CAP PO SCH ×2 (09:06→20:47)
[2021-10-13] MEDS: Aspirin Chewable 81 MG TAB PO SCH (09:06)
[2021-10-13] MEDS: NIFEdipine XL 60 MG TAB PO SCH (09:07)
[2021-10-13] MEDS: Folic Acid 1 MG TAB PO SCH (09:07)
[2021-10-13] MEDS: Sevelamer Carbonate 800 MG TAB PO SCH ×3 (09:07→19:05)
[2021-10-13] MEDS: Thiamine 100 MG TAB PO SCH (09:07)
[2021-10-13] MEDS: Cholecalciferol 1,000 UNITS (25 MCG) TAB PO SCH (09:07)
[2021-10-13] MEDS: Multivit, Therapeutic 1 TAB PO SCH (09:10)
[2021-10-13] MEDS: Pantoprazole 40 MG VIAL IVP SCH (09:10)
[2021-10-13] MEDS: Minoxidil 10 MG TAB PO SCH (09:10)
[2021-10-13] MEDS: Enoxaparin Sodium 30 MG/0.3 ML SYRINGE SC SCH (09:10)
[2021-10-13] MEDS ORDERED: Carvedilol 25 MG TAB PO SCH (09:11)
[2021-10-13] MEDS ORDERED: Furosemide 100 MG/10 ML VIAL SLOW IVP SCH (09:15)
[2021-10-13] MEDS ORDERED: Carvedilol 6.25 MG TAB PO SCH (09:30)
[2021-10-13] MEDS ORDERED: Nitroglycerin 2% Ointment 1 INCH/1 GM Packet TOP SCH (09:30)
[2021-10-13] MEDS ORDERED: Heparin 10,000 UNITS/ 10 ML VIAL ONE (09:43)
[2021-10-13] MEDS ORDERED: Bisacodyl 10 MG SUPP PR PRN (12:49)
[2021-10-13 14:28] LABS: HBSAB Concentration Less than 8.00 mIU/mL; HBSAg Index 0.31 S/CO (0-0.99); Hep B Core Total Ab Non-Reactive (NonReactive); Hep B Core Total Index 0.11 S/CO (0-0.79); Hep B Surf AB Non-Reactive (NonReactive); Hep B Surf Ag Non-Reactive S/CO (NonReactive); Hep C IgG Ab Non-Reactive (NonReactive); Hep C Index 0.06 S/CO (0-0.79)
[2021-10-13] MEDS: Carvedilol 6.25 MG TAB PO SCH (19:07)
[2021-10-13] MEDS: Tamsulosin HCl 0.4 MG CAP PO SCH (20:47)
[2021-10-13] MEDS: Atorvastatin Calcium 40 MG TAB PO SCH (20:47)
[2021-10-13] MEDS: Methocarbamol 500 MG TAB PO PRN (20:57)
[2021-10-13] MEDS: Latanoprost 0.005% Ophth Soln 2.5 ml Bottle R EYE SCH (20:58)
[2021-10-14 03:55] LABS: Hemoglobin 10.2 g/dL (14.0-18.0); Mean Corpuscular HGB CONC 33.1 g/dL (32.0-36.0); Mean Corpuscular Hemoglobin 31.1 pg (27.0-31.0); Mean Corpuscular Volume 94.1 fL (78.0-98.0); Mean Platelet Volume 7.9 fL (7.4-10.4); Platelet Count 173 thou/uL (130-400); RBC Distribution Width 13.2 % (11.5-14.5); Red Blood Cell (RBC) Count 3.29 mill/uL (4.70-6.10); White Blood Cell (WBC) Count 12.1 thou/uL (4.8-10.8)
[2021-10-14 04:14] LABS: Phosphorus 3.4 mg/dL (2.3-4.7)
[2021-10-14 04:15] LABS: Anion Gap 15 mmol/L (10-20); BUN (Urea Nitrogen) 64 mg/dL (8.4-25.7); Calc. Creatinine Clearance 28 mL/min (70-130); Calcium 8.3 mg/dL (7.8-10.44); Carbon Dioxide 24 mmol/L (23-31); Chloride 101 mmol/L (98-107); Estimated GFR 22; Glucose 123 mg/dL (83-110); Potassium 3.5 mmol/L (3.5-5.1); Sodium 136 mmol/L (136-145)
[2021-10-14] MEDS: Nitroglycerin 2% Ointment 1 INCH/1 GM Packet TOP SCH ×2 (05:17→15:19)
[2021-10-14] MEDS: Mometasone 100 MCG/PUFF (1 INHALER) INH SCH ×2 (07:36→18:23)
[2021-10-14] MEDS ORDERED: Heparin 10,000 UNITS/ 10 ML VIAL ONE (09:40)
[2021-10-14] MEDS: Cefdinir 300 MG CAP PO SCH ×2 (09:50→20:15)
[2021-10-14] MEDS: Sevelamer Carbonate 800 MG TAB PO SCH ×3 (09:50→17:42)
[2021-10-14] MEDS: hydrALAZINE 25 MG TAB PO SCH ×3 (09:50→20:15)
[2021-10-14] MEDS: Carvedilol 6.25 MG TAB PO SCH ×2 (09:50→17:42)
[2021-10-14] MEDS: Minoxidil 10 MG TAB PO SCH (09:50)
[2021-10-14] MEDS: Aspirin Chewable 81 MG TAB PO SCH (09:50)
[2021-10-14] MEDS: NIFEdipine XL 60 MG TAB PO SCH (09:50)
[2021-10-14] MEDS: Enoxaparin Sodium 30 MG/0.3 ML SYRINGE SC SCH (09:50)
[2021-10-14] MEDS: Multivit, Therapeutic 1 TAB PO SCH (09:50)
[2021-10-14] MEDS: Cholecalciferol 1,000 UNITS (25 MCG) TAB PO SCH (09:51)
[2021-10-14] MEDS: Thiamine 100 MG TAB PO SCH (09:51)
[2021-10-14] MEDS: Folic Acid 1 MG TAB PO SCH (09:51)
[2021-10-14 14:19] VITALS: BMI 26.5
[2021-10-14] MEDS: Tuberculin PPD 0.1 ML VIAL I-DERMAL SCH (15:19)
[2021-10-14] MEDS: Tamsulosin HCl 0.4 MG CAP PO SCH (20:15)
[2021-10-14] MEDS: Atorvastatin Calcium 40 MG TAB PO SCH (20:15)
[2021-10-14] MEDS: Latanoprost 0.005% Ophth Soln 2.5 ml Bottle R EYE SCH (20:16)
[2021-10-15 04:31] LABS: #Eosinphils 0.1 thou/uL (0.0-0.7); #Lymphocytes 1.7 thou/uL (1.20-3.40); #Monocytes 1.4 thou/uL (0.11-0.59); #Neutrophils 7.2 thou/uL (1.40-6.50); %Basophils 0.1 % (0.0-1.0); %Eosinophils 0.7 % (0.0-10.0); %Lymphocytes 16.2 % (21.0-51.0); %Monocytes 13.4 % (0.0-10.0); %Neutrophils 69.6 % (42.0-75.0); Hemoglobin 9.9 g/dL (14.0-18.0); Mean Corpuscular HGB CONC 32.2 g/dL (32.0-36.0); Mean Corpuscular Hemoglobin 30.3 pg (27.0-31.0); Mean Corpuscular Volume 93.9 fL (78.0-98.0); Platelet Count 189 thou/uL (130-400); RBC Distribution Width 13.1 % (11.5-14.5); Red Blood Cell (RBC) Count 3.28 mill/uL (4.70-6.10); White Blood Cell (WBC) Count 10.4 thou/uL (4.8-10.8)
[2021-10-15 04:52] LABS: Phosphorus 3.4 mg/dL (2.3-4.7)
[2021-10-15 04:54] LABS: Anion Gap 13 mmol/L (10-20); BUN (Urea Nitrogen) 49 mg/dL (8.4-25.7); Calc. Creatinine Clearance 23 mL/min (70-130); Calcium 8.2 mg/dL (7.8-10.44); Carbon Dioxide 27 mmol/L (23-31); Chloride 100 mmol/L (98-107); Estimated GFR 19; Glucose 124 mg/dL (83-110); Magnesium 2.2 mg/dL (1.6-2.6); Potassium 3.4 mmol/L (3.5-5.1); Sodium 137 mmol/L (136-145)
[2021-10-15] MEDS: Mometasone 100 MCG/PUFF (1 INHALER) INH SCH ×2 (06:32→18:25)
[2021-10-15] MEDS: Cholecalciferol 1,000 UNITS (25 MCG) TAB PO SCH (08:32)
[2021-10-15] MEDS: Multivit, Therapeutic 1 TAB PO SCH (08:32)
[2021-10-15] MEDS: Thiamine 100 MG TAB PO SCH (08:32)
[2021-10-15] MEDS: Cefdinir 300 MG CAP PO SCH ×2 (08:32→20:55)
[2021-10-15] MEDS: Aspirin Chewable 81 MG TAB PO SCH (08:32)
[2021-10-15] MEDS: Folic Acid 1 MG TAB PO SCH (08:32)
[2021-10-15] MEDS: hydrALAZINE 25 MG TAB PO SCH ×4 (08:32→20:55)
[2021-10-15] MEDS: Enoxaparin Sodium 30 MG/0.3 ML SYRINGE SC SCH (08:32)
[2021-10-15] MEDS: Sevelamer Carbonate 800 MG TAB PO SCH ×3 (08:33→16:15)
[2021-10-15] MEDS: Carvedilol 6.25 MG TAB PO SCH ×2 (08:33→16:15)
[2021-10-15] MEDS ORDERED: Potassium Bicarbonate/Cit Ac 20 MEQ TAB PO SCH (09:00)
[2021-10-15] MEDS: NIFEdipine XL 30 MG TAB PO SCH (10:06)
[2021-10-15] MEDS: Tuberculin PPD 0.1 ML VIAL I-DERMAL SCH (11:32)
[2021-10-15] MEDS ORDERED: ceFAZolin 2 GM/Dextrose 50 ML 2 GM in Premix Bag 1 BAG IVPB SCH (16:30)
[2021-10-15] MEDS ORDERED: CEFAZOLIN 2 GM VIAL IVPB SCH (17:00)
[2021-10-15] MEDS: Tamsulosin HCl 0.4 MG CAP PO SCH (20:55)
[2021-10-15] MEDS: Latanoprost 0.005% Ophth Soln 2.5 ml Bottle R EYE SCH (20:55)
[2021-10-15] MEDS: Atorvastatin Calcium 40 MG TAB PO SCH (20:55)
[2021-10-16] MEDS: Methocarbamol 500 MG TAB PO PRN ×2 (00:15→20:48)
[2021-10-16 04:25] LABS: #Eosinphils 0.1 thou/uL (0.0-0.7); #Lymphocytes 1.8 thou/uL (1.20-3.40); #Monocytes 1.4 thou/uL (0.11-0.59); #Neutrophils 9.7 thou/uL (1.40-6.50); %Basophils 0.1 % (0.0-1.0); %Eosinophils 0.8 % (0.0-10.0); %Lymphocytes 13.6 % (21.0-51.0); %Monocytes 11.1 % (0.0-10.0); %Neutrophils 74.3 % (42.0-75.0); Hemoglobin 9.9 g/dL (14.0-18.0); Mean Corpuscular HGB CONC 32.7 g/dL (32.0-36.0); Mean Corpuscular Hemoglobin 30.9 pg (27.0-31.0); Mean Corpuscular Volume 94.5 fL (78.0-98.0); Mean Platelet Volume 7.9 fL (7.4-10.4); Platelet Count 212 thou/uL (130-400); RBC Distribution Width 13.1 % (11.5-14.5); Red Blood Cell (RBC) Count 3.21 mill/uL (4.70-6.10)
[2021-10-16 04:53] LABS: Anion Gap 14 mmol/L (10-20); BUN (Urea Nitrogen) 67 mg/dL (8.4-25.7); Calc. Creatinine Clearance 21 mL/min (70-130); Calcium 8.5 mg/dL (7.8-10.44); Carbon Dioxide 26 mmol/L (23-31); Chloride 99 mmol/L (98-107); Estimated GFR 17; Glucose 129 mg/dL (83-110); Magnesium 2.1 mg/dL (1.6-2.6); Potassium 3.4 mmol/L (3.5-5.1); Sodium 136 mmol/L (136-145)
[2021-10-16] MEDS: Mometasone 100 MCG/PUFF (1 INHALER) INH SCH ×2 (06:12→18:47)
[2021-10-16] MEDS ORDERED: Bupivacaine PF 0.5% 30 ML VIAL ONE (06:37)
[2021-10-16] MEDS ORDERED: Heparin 10,000 UNITS/ 10 ML VIAL ONE ×2 (06:37→09:26)
[2021-10-16] MEDS ORDERED: Lidocaine 1% w/Epinephrine 1:100K 20 ML VIAL ONE (06:37)
[2021-10-16] MEDS ORDERED: Bupivacaine 0.25% HCL 30 ML VIAL ONE (06:37)
[2021-10-16] MEDS ORDERED: fentaNYL Citrate/PF 100 MCG/2 ML SYRINGE ONE (06:48)
[2021-10-16] MEDS ORDERED: Propofol 500 MG/50 ML VIAL ONE (06:56)
[2021-10-16] MEDS ORDERED: Sodium Chloride 0.9% 100 ML ONE (07:51)
[2021-10-16] MEDS ORDERED: CEFAZOLIN 2 GM VIAL ONE (07:51)
[2021-10-16] MEDS ORDERED: Ondansetron HCl/PF 4 MG/2 ML Vial IVP PRN (08:57)
[2021-10-16] MEDS ORDERED: Promethazine HCl 25 MG/ML VIAL IVPB PRN (08:57)
[2021-10-16] MEDS ORDERED: Promethazine HCl 25 MG/ML VIAL IM PRN (08:57)
[2021-10-16] MEDS ORDERED: READ PPD TEST SITE PO SCH (09:00)
[2021-10-16] MEDS: Thiamine 100 MG TAB PO SCH (10:46)
[2021-10-16] MEDS: Cholecalciferol 1,000 UNITS (25 MCG) TAB PO SCH (10:46)
[2021-10-16] MEDS: Multivit, Therapeutic 1 TAB PO SCH (10:47)
[2021-10-16] MEDS: Sevelamer Carbonate 800 MG TAB PO SCH ×3 (10:47→17:36)
[2021-10-16] MEDS: Enoxaparin Sodium 30 MG/0.3 ML SYRINGE SC SCH (10:47)
[2021-10-16] MEDS: Cefdinir 300 MG CAP PO SCH ×2 (10:47→20:04)
[2021-10-16] MEDS: Potassium Chloride 20 MEQ TAB PO SCH ×2 (10:47→17:36)
[2021-10-16] MEDS: Folic Acid 1 MG TAB PO SCH (10:47)
[2021-10-16] MEDS: Aspirin Chewable 81 MG TAB PO SCH (10:47)
[2021-10-16] MEDS: Tuberculin PPD 0.1 ML VIAL I-DERMAL SCH (13:02)
[2021-10-16] MEDS: hydrALAZINE 25 MG TAB PO SCH ×3 (15:32→20:06)
[2021-10-16] MEDS: NIFEdipine XL 30 MG TAB PO SCH (17:36)
[2021-10-16] MEDS: Carvedilol 25 MG TAB PO SCH (17:36)
[2021-10-16] MEDS: Carvedilol 6.25 MG TAB PO SCH (17:40)
[2021-10-16] MEDS: Atorvastatin Calcium 40 MG TAB PO SCH (20:05)
[2021-10-16 20:06] VITALS: BP 144/100
[2021-10-16] MEDS: Tamsulosin HCl 0.4 MG CAP PO SCH (20:06)
[2021-10-16] MEDS: Latanoprost 0.005% Ophth Soln 2.5 ml Bottle R EYE SCH (20:06)
[2021-10-17 04:27] VITALS: TEMP 98.8
[2021-10-17 05:12] LABS: Anion Gap 15 mmol/L (10-20); BUN (Urea Nitrogen) 50 mg/dL (8.4-25.7); Calc. Creatinine Clearance 26 mL/min (70-130); Calcium 8.2 mg/dL (7.8-10.44); Carbon Dioxide 25 mmol/L (23-31); Chloride 101 mmol/L (98-107); Estimated GFR 21; Glucose 125 mg/dL (83-110); Potassium 3.9 mmol/L (3.5-5.1); Sodium 137 mmol/L (136-145)
[2021-10-17] MEDS: Mometasone 100 MCG/PUFF (1 INHALER) INH SCH (06:31)
[2021-10-17] MEDS: Cefdinir 300 MG CAP PO SCH (08:21)
[2021-10-17] MEDS: NIFEdipine XL 30 MG TAB PO SCH (08:21)
[2021-10-17] MEDS: Sevelamer Carbonate 800 MG TAB PO SCH ×2 (08:21→14:44)
[2021-10-17] MEDS: Multivit, Therapeutic 1 TAB PO SCH (08:21)
[2021-10-17] MEDS: Aspirin Chewable 81 MG TAB PO SCH (08:21)
[2021-10-17] MEDS: hydrALAZINE 25 MG TAB PO SCH ×2 (08:22→16:22)
[2021-10-17] MEDS: Enoxaparin Sodium 30 MG/0.3 ML SYRINGE SC SCH (08:22)
[2021-10-17] MEDS: Cholecalciferol 1,000 UNITS (25 MCG) TAB PO SCH (08:22)
[2021-10-17] MEDS: Carvedilol 25 MG TAB PO SCH (08:22)
[2021-10-17] MEDS: Folic Acid 1 MG TAB PO SCH (08:22)
[2021-10-17] MEDS: Thiamine 100 MG TAB PO SCH (08:22)
[2021-10-17] MEDS: Tuberculin PPD 0.1 ML VIAL I-DERMAL SCH (13:18)
== END 2021-10-17 16:24 | disposition home or self-care (01) | DRG 673 ==
LOC: ERS 19:43 → 2SW 21:53 → CCU 10-05 06:45 → IMCU/EMU 10-08 19:00 → T4-B 10-10 18:08 → IMCU/EMU 10-13 15:10
PROVIDERS: ADMIT Internal Medicine; ATTEND Internal Medicine
PROC: 5A1945Z Respiratory Ventilation, 24-96 Consecutive Hours (ICD-10-PCS; 2021-10-06)
PROC: 0BH18EZ Insertion of Endotracheal Airway into Trachea, Via Natural or Artificial Opening Endoscopic (ICD-10-PCS; 2021-10-06)
PROC: 06HY33Z Insertion of Infusion Device into Lower Vein, Percutaneous Approach (ICD-10-PCS; principal; 2021-10-13)
PROC: 5A1D70Z Performance of Urinary Filtration, Intermittent, Less than 6 Hours Per Day (ICD-10-PCS; 2021-10-13)
PROC: 5A1D70Z Performance of Urinary Filtration, Intermittent, Less than 6 Hours Per Day (ICD-10-PCS; 2021-10-14)
PROC: 0JH63XZ Insertion of Tunneled Vascular Access Device into Chest Subcutaneous Tissue and Fascia, Percutaneous Approach (ICD-10-PCS; 2021-10-16)
PROC: 02HV33Z Insertion of Infusion Device into Superior Vena Cava, Percutaneous Approach (ICD-10-PCS; 2021-10-16)
PROC: B5181ZA Fluoroscopy of Superior Vena Cava using Low Osmolar Contrast, Guidance (ICD-10-PCS; 2021-10-16)
PROC: B548ZZA Ultrasonography of Superior Vena Cava, Guidance (ICD-10-PCS; 2021-10-16)
PROC: 5A1D70Z Performance of Urinary Filtration, Intermittent, Less than 6 Hours Per Day (ICD-10-PCS; 2021-10-17)
DX: N17.9 Acute kidney failure, unspecified (principal); J96.01 Acute respiratory failure with hypoxia; G93.41 Metabolic encephalopathy; I50.33 Acute on chronic diastolic (congestive) heart failure; J18.9 Pneumonia, unspecified organism; E87.1 Hypo-osmolality and hyponatremia; E87.2 Acidosis; E87.3 Alkalosis; I13.2 Hypertensive heart and chronic kidney disease with heart failure and with stage 5 chronic kidney disease, or end stage renal disease; N18.6 End stage renal disease; I16.0 Hypertensive urgency; I25.10 Atherosclerotic heart disease of native coronary artery without angina pectoris; N26.1 Atrophy of kidney (terminal); D63.1 Anemia in chronic kidney disease; K21.9 Gastro-esophageal reflux disease without esophagitis; E78.5 Hyperlipidemia, unspecified; C61 Malignant neoplasm of prostate; I35.0 Nonrheumatic aortic (valve) stenosis; E78.00 Pure hypercholesterolemia, unspecified; I73.9 Peripheral vascular disease, unspecified; I70.1 Atherosclerosis of renal artery; Z20.822 Contact with and (suspected) exposure to COVID-19; F41.9 Anxiety disorder, unspecified; E55.9 Vitamin D deficiency, unspecified; K59.00 Constipation, unspecified; J43.9 Emphysema, unspecified; I25.2 Old myocardial infarction; Z98.890 Other specified postprocedural states; Z87.891 Personal history of nicotine dependence; Z88.8 Allergy status to other drugs, medicaments and biological substances; Z79.51 Long term (current) use of inhaled steroids; Z79.82 Long term (current) use of aspirin; Z79.899 Other long term (current) drug therapy
CPT/HCPCS: 36415; 36600; 70450; 71045; 74018; 74176; 76770; 80048; 80053; 80061; 81003; 82306; 82550; 82570; 82728; 82805; 83540; 83550; 83690; 83735; 83880; 83970; 84100; 84156; 84300; 84443; 84484; 85025; 85027; 85379; 86580; 86704; 87340; 90935; 93005; 93010; 93306; 93970; 94002; 94003; 94640; 94660; 94760; 96374; C1752; C9113; G0257; J0360; J0690; J0696; J1642; J1644; J1650; J1940; J2060; J2270; J2704; J2920; J3411; J3475; J3490; J7030; J7050; J7620; S0020; U0003; U0005

== ENCOUNTER 2022-08-20 10:55 | Inpatient (IN) | payer MEDICARE ==
[~2022-08-20 10:55] MED LIST changes: +Heparin 10,000 UNITS/ 10 ML VIAL ONE; -Magnevist 469MG/ML 20 ML VIAL ONE
[2022-08-20] MEDS ORDERED: methylPREDNISolone Sod Succ/PF 125 MG/2 ML VIAL ONE (11:15)
[2022-08-20 11:18] LABS: #Neutrophils 13.5 thou/uL (1.40-6.50); %Basophils 0.3 % (0.0-1.0); %Eosinophils 0.2 % (0.0-10.0); %Monocytes 6.6 % (0.0-10.0); %Neutrophils 85.5 % (42.0-75.0); Hemoglobin 9.6 g/dL (14.0-18.0); Mean Corpuscular HGB CONC 30.7 g/dL (32.0-36.0); Mean Corpuscular Hemoglobin 29.6 pg (27.0-31.0); Mean Corpuscular Volume 96.6 fl (78.0-98.0); Platelet Count 205 10x3/uL (130-400); RBC Distribution Width 14.4 % (11.5-14.5); Red Blood Cell (RBC) Count 3.24 mill/uL (4.70-6.10); White Blood Cell (WBC) Count 15.8 10x3/uL (4.8-10.8)
[2022-08-20] MEDS ORDERED: Ipratropium/Albuterol 3 ML NEB ONE (11:25)
[2022-08-20 11:42] LABS: ALT (SGPT) 10 U/L (8-55); AST (SGOT) 11 U/L (5-34); Albumin 3.8 g/dL (3.4-4.8); Alkaline Phosphatase 93 U/L (40-110); Anion Gap 16 mmol/L (10-20); BUN (Urea Nitrogen) 41 mg/dL (8.4-25.7); Bilirubin, Total 0.5 mg/dL (0.2-1.2); Calc. Creatinine Clearance 0 mL/min (70-130); Carbon Dioxide 28 mmol/L (23-31); Chloride 98 mmol/L (98-107); Estimated GFR 20; Glucose 136 mg/dL (83-110); Potassium 3.9 mmol/L (3.5-5.1); Protein, Total 6.8 g/dL (5.8-8.1); Sodium 138 mmol/L (136-145)
[2022-08-20] MEDS ORDERED: Nitroglycerin 0.4 MG TAB 1 EACH ONE (12:00)
[2022-08-20] MEDS ORDERED: Acetaminophen 500 MG TAB ONE (12:00)
[2022-08-20] MEDS ORDERED: Nitroglycerin 2% Ointment 1 INCH/1 GM Packet ONE (12:00)
[2022-08-20] MEDS ORDERED: Ondansetron ODT 4 MG TAB PO PRN (12:25)
[2022-08-20] MEDS ORDERED: Ondansetron PF 4 MG/2 ML Vial IVP PRN (12:25)
[2022-08-20] MEDS ORDERED: Senokot S 8.6-50 MG TAB PO PRN (12:25)
[2022-08-20] MEDS ORDERED: Calcium Carbonate 500 MG ChewTAB PO PRN (12:25)
[2022-08-20] MEDS ORDERED: Doxycycline 100 MG CAP PO SCH (13:00)
[2022-08-20 13:05] LABS: HBSAg Index 0.19 S/CO (0-0.99); Hep B Surf Ag Non-Reactive S/CO (NonReactive)
[2022-08-20 13:07] LABS: HBSAB Concentration 56.52 mIU/mL; Hep B Surf AB Reactive (NonReactive)
[2022-08-20 15:13] VITALS: BMI 21.4
[2022-08-20 15:35] LABS: Troponin I 0.191 ng/mL (< 0.028)
[2022-08-20] MEDS: Ipratropium/Albuterol 3 ML NEB NEB SCH ×2 (15:46→19:14)
[2022-08-20] MEDS: Heparin 5,000 UNITS/ML VIAL SC SCH ×2 (15:46→21:47)
[2022-08-20] MEDS: hydrALAZINE 25 MG TAB PO SCH ×2 (15:46→21:43)
[2022-08-20] MEDS: Carvedilol 25 MG TAB PO SCH (18:39)
[2022-08-20] MEDS: Sevelamer Carbonate 800 MG TAB PO SCH (18:39)
[2022-08-20] MEDS: Mometasone 100 MCG HFA INHALER (RT USE) INH SCH (19:20)
[2022-08-20 19:54] LABS: Troponin I 0.127 ng/mL (< 0.028)
[2022-08-20] MEDS: NIFEdipine XL 30 MG TAB PO SCH (21:43)
[2022-08-20] MEDS: Sertraline 100 MG TAB PO SCH (21:44)
[2022-08-20] MEDS: Doxycycline 100 MG CAP PO SCH (21:44)
[2022-08-20] MEDS: Tamsulosin HCl 0.4 MG CAP PO SCH (21:44)
[2022-08-20] MEDS: Atorvastatin Calcium 40 MG TAB PO SCH (21:45)
[2022-08-20] MEDS: Aspirin 325 MG TAB PO SCH (21:45)
[2022-08-20] MEDS: Ezetimibe 10 MG TAB PO SCH (21:45)
[2022-08-20] MEDS: Latanoprost 0.005% Ophth Soln 2.5 ml Bottle EA EYE SCH (21:52)
[2022-08-21] MEDS: Ipratropium/Albuterol 3 ML NEB NEB SCH ×4 (01:15→18:24)
[2022-08-21 05:03] LABS: #Monocytes 0.9 thou/uL (0.11-0.59); #Neutrophils 5.2 thou/uL (1.40-6.50); %Basophils 0.1 % (0.0-1.0); %Lymphocytes 14.8 % (21.0-51.0); %Neutrophils 72.5 % (42.0-75.0); Hemoglobin 9.3 g/dL (14.0-18.0); Mean Corpuscular HGB CONC 30.8 g/dL (32.0-36.0); Mean Corpuscular Hemoglobin 29.5 pg (27.0-31.0); Mean Corpuscular Volume 95.9 fl (78.0-98.0); Mean Platelet Volume 10.5 fL (7.4-10.4); Platelet Count 192 10x3/uL (130-400); RBC Distribution Width 14.3 % (11.5-14.5); Red Blood Cell (RBC) Count 3.15 mill/uL (4.70-6.10); White Blood Cell (WBC) Count 7.2 10x3/uL (4.8-10.8)
[2022-08-21] MEDS: methylPREDNISolone Sod Succ 40 MG VIAL IVP SCH ×3 (05:18→20:54)
[2022-08-21 05:27] LABS: ALT (SGPT) 8 U/L (8-55); AST (SGOT) 7 U/L (5-34); Albumin 3.5 g/dL (3.4-4.8); Alkaline Phosphatase 84 U/L (40-110); Anion Gap 16 mmol/L (10-20); BUN (Urea Nitrogen) 34 mg/dL (8.4-25.7); Bilirubin, Total 0.3 mg/dL (0.2-1.2); Calc. Creatinine Clearance 22 mL/min (70-130); Calcium 8.9 mg/dL (7.8-10.44); Carbon Dioxide 27 mmol/L (23-31); Chloride 100 mmol/L (98-107); Estimated GFR 25; Globulin 2.9 g/dL (2.4-3.5); Glucose 171 mg/dL (83-110); Potassium 3.4 mmol/L (3.5-5.1); Protein, Total 6.4 g/dL (5.8-8.1); Sodium 140 mmol/L (136-145)
[2022-08-21] MEDS: Mometasone 100 MCG HFA INHALER (RT USE) INH SCH ×2 (07:50→18:26)
[2022-08-21] MEDS: Carvedilol 25 MG TAB PO SCH ×2 (08:13→16:37)
[2022-08-21] MEDS: Sevelamer Carbonate 800 MG TAB PO SCH ×3 (08:13→16:37)
[2022-08-21] MEDS: NIFEdipine XL 60 MG TAB PO SCH (08:13)
[2022-08-21] MEDS: hydrALAZINE 25 MG TAB PO SCH ×3 (08:13→20:42)
[2022-08-21] MEDS: Doxycycline 100 MG CAP PO SCH ×2 (08:14→20:43)
[2022-08-21] MEDS: Cholecalciferol 1,000 UNITS (25 MCG) TAB PO SCH (08:14)
[2022-08-21] MEDS: Thiamine 100 MG TAB PO SCH (08:14)
[2022-08-21] MEDS: Folic Acid 1 MG TAB PO SCH (08:14)
[2022-08-21] MEDS: Heparin 5,000 UNITS/ML VIAL SC SCH ×3 (08:16→20:58)
[2022-08-21] MEDS: Furosemide 40 MG TAB PO SCH (11:22)
[2022-08-21] MEDS: Aspirin 325 MG TAB PO SCH (20:42)
[2022-08-21] MEDS: Ezetimibe 10 MG TAB PO SCH (20:43)
[2022-08-21] MEDS: Tamsulosin HCl 0.4 MG CAP PO SCH (20:43)
[2022-08-21] MEDS: Atorvastatin Calcium 40 MG TAB PO SCH (20:43)
[2022-08-21] MEDS: Sertraline 100 MG TAB PO SCH (20:43)
[2022-08-21] MEDS: NIFEdipine XL 30 MG TAB PO SCH (20:44)
[2022-08-21] MEDS: Latanoprost 0.005% Ophth Soln 2.5 ml Bottle EA EYE SCH (20:44)
[2022-08-22] MEDS: Ipratropium/Albuterol 3 ML NEB NEB SCH ×3 (00:19→14:44)
[2022-08-22 04:48] LABS: #Monocytes 0.4 thou/uL (0.11-0.59); #Neutrophils 6.9 thou/uL (1.40-6.50); %Lymphocytes 11.4 % (21.0-51.0); %Monocytes 4.8 % (0.0-10.0); %Neutrophils 83.2 % (42.0-75.0); Hemoglobin 8.5 g/dL (14.0-18.0); Mean Corpuscular HGB CONC 30.5 g/dL (32.0-36.0); Mean Corpuscular Hemoglobin 28.6 pg (27.0-31.0); Mean Corpuscular Volume 93.9 fl (78.0-98.0); Mean Platelet Volume 10.6 fL (7.4-10.4); Platelet Count 175 10x3/uL (130-400); RBC Distribution Width 13.9 % (11.5-14.5); Red Blood Cell (RBC) Count 2.97 mill/uL (4.70-6.10); White Blood Cell (WBC) Count 8.3 10x3/uL (4.8-10.8)
[2022-08-22 05:12] LABS: Anion Gap 18 mmol/L (10-20); BUN (Urea Nitrogen) 70 mg/dL (8.4-25.7); Calc. Creatinine Clearance 17 mL/min (70-130); Calcium 8.7 mg/dL (7.8-10.44); Carbon Dioxide 25 mmol/L (23-31); Chloride 97 mmol/L (98-107); Estimated GFR 18; Glucose 157 mg/dL (83-110); Magnesium 2.3 mg/dL (1.6-2.6); Potassium 3.7 mmol/L (3.5-5.1); Sodium 136 mmol/L (136-145)
[2022-08-22] MEDS: methylPREDNISolone Sod Succ 40 MG VIAL IVP SCH ×2 (05:52→15:06)
[2022-08-22] MEDS: Mometasone 100 MCG HFA INHALER (RT USE) INH SCH (08:33)
[2022-08-22] MEDS: Folic Acid 1 MG TAB PO SCH (09:18)
[2022-08-22] MEDS: Heparin 5,000 UNITS/ML VIAL SC SCH ×2 (09:19→16:17)
[2022-08-22] MEDS: Cholecalciferol 1,000 UNITS (25 MCG) TAB PO SCH (09:19)
[2022-08-22] MEDS: NIFEdipine XL 60 MG TAB PO SCH (09:19)
[2022-08-22] MEDS: hydrALAZINE 25 MG TAB PO SCH ×2 (09:19→16:17)
[2022-08-22] MEDS: Sevelamer Carbonate 800 MG TAB PO SCH ×2 (09:19→14:19)
[2022-08-22] MEDS: Doxycycline 100 MG CAP PO SCH (09:19)
[2022-08-22] MEDS: Thiamine 100 MG TAB PO SCH (09:19)
[2022-08-22] MEDS: Carvedilol 25 MG TAB PO SCH (09:19)
[2022-08-22] MEDS ORDERED: Furosemide 20 MG/2 ML VIAL SLOW IVP SCH (12:30)
[2022-08-22 13:18] VITALS: TEMP 98.2
[2022-08-22 14:06] VITALS: BP 143/66
[2022-08-22] MEDS: NIFEdipine XL 30 MG TAB PO SCH ×2 (14:10→14:20)
[2022-08-22] MEDS: Furosemide 40 MG TAB PO SCH (14:19)
== END 2022-08-22 15:32 | disposition home or self-care (01) | DRG 291 ==
LOC: SUATTDRO 10:55 → ERS 10:55 → 2NO 12:24
PROVIDERS: ADMIT Internal Medicine; ATTEND Internal Medicine
PROC: 5A1D70Z Performance of Urinary Filtration, Intermittent, Less than 6 Hours Per Day (ICD-10-PCS; principal; 2022-08-20)
DX: I13.2 Hypertensive heart and chronic kidney disease with heart failure and with stage 5 chronic kidney disease, or end stage renal disease (principal); I50.33 Acute on chronic diastolic (congestive) heart failure; J96.21 Acute and chronic respiratory failure with hypoxia; N18.6 End stage renal disease; N25.81 Secondary hyperparathyroidism of renal origin; I24.8 Other forms of acute ischemic heart disease; E78.5 Hyperlipidemia, unspecified; I25.10 Atherosclerotic heart disease of native coronary artery without angina pectoris; F39 Unspecified mood [affective] disorder; J44.9 Chronic obstructive pulmonary disease, unspecified; D63.1 Anemia in chronic kidney disease; E88.01 Alpha-1-antitrypsin deficiency; I25.2 Old myocardial infarction; Z99.2 Dependence on renal dialysis; Z87.891 Personal history of nicotine dependence; Z88.8 Allergy status to other drugs, medicaments and biological substances; Z79.899 Other long term (current) drug therapy; Z79.82 Long term (current) use of aspirin
CPT/HCPCS: 36415; 71045; 80048; 80053; 82553; 83605; 83735; 83880; 84484; 85025; 86706; 87040; 87340; 90935; 93005; 94640; 94760; 96374; G0257; J1644; J2920; J2930; J7620

== ENCOUNTER 2023-07-05 13:17 | Emergency (ER) | payer MEDICARE ==
[2023-07-05 14:03] LABS: #Basophils 0.04 10x3/uL (0.0-0.2); #Eosinphils Less than 0.03 10x3/uL (0.0-0.7); %Basophils 0.4 % (0.0-1.0); %Eosinophils 0.1 % (0.0-10.0); %Lymphocytes 13.3 % (21.0-51.0); %Monocytes 8.3 % (0.0-10.0); %Neutrophils 77.4 % (42.0-75.0); Hematocrit 38.7 % (42.0-52.0); Hemoglobin 12.6 g/dL (14.0-18.0); Mean Corpuscular HGB CONC 32.6 g/dL (32.0-36.0); Mean Corpuscular Hemoglobin 32.4 pg (27.0-31.0); Mean Corpuscular Volume 99.5 fL (78.0-98.0); Mean Platelet Volume 10.2 fL (7.4-10.4); Platelet Count 178 10x3/uL (130-400); RBC Distribution Width 18.1 % (11.5-14.5); Red Blood Cell (RBC) Count 3.89 mill/uL (4.70-6.10)
[2023-07-05 14:24] LABS: Troponin I 0.026 ng/mL (< 0.028)
[2023-07-05 14:29] LABS: ALT (SGPT) 15 U/L (8-55); AST (SGOT) 31 U/L (5-34); Alkaline Phosphatase 95 U/L (40-110); Anion Gap 17 mmol/L (10-20); BUN (Urea Nitrogen) 30 mg/dL (8.4-25.7); Bilirubin, Total 0.3 mg/dL (0.2-1.2); Calc. Creatinine Clearance 0 mL/min (70-130); Calcium 8.8 mg/dL (7.8-10.44); Carbon Dioxide 26 mmol/L (23-31); Chloride 98 mmol/L (98-107); Estimated GFR 18; Globulin 3.2 g/dL (2.4-3.5); Glucose 132 mg/dL (83-110); Lipase 32 U/L (8-78); Potassium 4.7 mmol/L (3.5-5.1); Protein, Total 7.2 g/dL (5.8-8.1); Sodium 136 mmol/L (136-145)
[2023-07-05 17:54] LABS: Troponin I 0.037 ng/mL (< 0.028)
== END 2023-07-05 18:24 | disposition home or self-care (01) ==
LOC: ERS 13:17
DX: I47.19 Other supraventricular tachycardia (principal); J44.9 Chronic obstructive pulmonary disease, unspecified; I13.2 Hypertensive heart and chronic kidney disease with heart failure and with stage 5 chronic kidney disease, or end stage renal disease; I50.9 Heart failure, unspecified; N18.6 End stage renal disease; Z87.891 Personal history of nicotine dependence; Z99.2 Dependence on renal dialysis; Z79.82 Long term (current) use of aspirin; Z79.899 Other long term (current) drug therapy
CPT/HCPCS: 36415; 71045; 80053; 83690; 84484; 85025; 93005

== ENCOUNTER 2024-03-03 13:47 | Observation (INO) | payer MEDICARE ==
[~2024-03-03 13:47] MED LIST changes: -Heparin 10,000 UNITS/ 10 ML VIAL ONE; +Iopamidol-370 76% 500 ML MDV (1 ML CHARGE) ONE
[2024-03-03] MEDS ORDERED: dilTIAZem 25 MG/5 ML VIAL ONE (14:17)
[2024-03-03 14:29] LABS: #Basophils Less than 0.03 10x3/uL (0.0-0.2); #Eosinophils Less than 0.03 10x3/uL (0.0-0.7); %Basophils 0.1 % (0.0-1.0); %Lymphocytes 10.5 % (21.0-51.0); %Monocytes 7.1 % (0.0-10.0); %Neutrophils 81.6 % (42.0-75.0); Hematocrit 33.2 % (42.0-52.0); Hemoglobin 10.7 g/dL (14.0-18.0); Mean Corpuscular HGB CONC 32.2 g/dL (32.0-36.0); Mean Corpuscular Hemoglobin 32.5 pg (27.0-31.0); Mean Corpuscular Volume 100.9 fL (78.0-98.0); Mean Platelet Volume 10.6 fL (7.4-10.4); Platelet Count 174 10x3/uL (130-400); RBC Distribution Width 17.9 % (11.5-14.5); Red Blood Cell (RBC) Count 3.29 mill/uL (4.70-6.10)
[2024-03-03 14:43] LABS: INR-International Normal Ratio 1.1; PTT 25.8 sec (22.9-36.1); Prothrombin Time 13.7 sec (12.0-14.7)
[2024-03-03 14:45] LABS: ALT (SGPT) 14 U/L (8-55); AST (SGOT) 22 U/L (5-34); Albumin 3.2 g/dL (3.4-4.8); Alkaline Phosphatase 83 U/L (40-110); Anion Gap 20 mmol/L (10-20); BUN (Urea Nitrogen) 22 mg/dL (8.4-25.7); Bilirubin, Total 0.5 mg/dL (0.2-1.2); Calc. Creatinine Clearance 0 mL/min (70-130); Calcium 8.6 mg/dL (7.8-10.44); Carbon Dioxide 25 mmol/L (23-31); Chloride 94 mmol/L (98-107); Estimated GFR 14; Globulin 3.9 g/dL (2.4-3.5); Glucose 129 mg/dL (83-110); Magnesium 2.1 mg/dL (1.6-2.6); Potassium 4.2 mmol/L (3.5-5.1); Protein, Total 7.1 g/dL (5.8-8.1); Sodium 135 mmol/L (136-145)
[2024-03-03 14:51] LABS: D-Dimer Test 6.35 mcg/mL (0.27-0.43)
[2024-03-03] MEDS ORDERED: Albuterol 200 PUFF INH INH PRN (18:01)
[2024-03-03] MEDS ORDERED: dilTIAZem 25 MG/5 ML VIAL SLOW IVP PRN (18:06)
[2024-03-03 18:51] VITALS: BMI 22.8
[2024-03-03] MEDS: Ipratropium/Albuterol 3 ML NEB NEB SCH (20:00)
[2024-03-03] MEDS: Mometasone 100 MCG HFA INHALER (RT USE) INH SCH (20:04)
[2024-03-03] MEDS: Azithromycin 500 MG in Sodium Chloride 0.9% 250 ML 250 ML IVPB SCH (22:27)
[2024-03-03] MEDS: cefTRIAXone\\ROCEPHIN 1 GM in Sodium Chloride 0.9% 100 ML IVPB SCH (22:28)
[2024-03-03] MEDS: Latanoprost 0.005% Ophth Soln 2.5 ml Bottle EA EYE SCH (22:28)
[2024-03-03] MEDS: traZODone HCl 50 MG TAB PO SCH (22:29)
[2024-03-03] MEDS: Atorvastatin Calcium 40 MG TAB PO SCH (22:29)
[2024-03-03] MEDS: hydrALAZINE 25 MG TAB PO SCH (22:29)
[2024-03-03] MEDS: Aspirin Chewable 81 MG TAB PO SCH (22:29)
[2024-03-03] MEDS: Ezetimibe 10 MG TAB PO SCH (22:29)
[2024-03-03] MEDS: Sevelamer Carbonate 800 MG TAB PO SCH (22:40)
[2024-03-03 23:17] LABS: Troponin I 0.058 ng/mL (< 0.028)
[2024-03-04 04:44] LABS: #Basophils 0.03 10x3/uL (0.0-0.2); %Basophils 0.3 % (0.0-1.0); %Eosinophils 0.3 % (0.0-10.0); %Lymphocytes 27.8 % (21.0-51.0); %Monocytes 13.1 % (0.0-10.0); %Neutrophils 57.9 % (42.0-75.0); Hematocrit 29.5 % (42.0-52.0); Hemoglobin 9.1 g/dL (14.0-18.0); Mean Corpuscular HGB CONC 30.8 g/dL (32.0-36.0); Mean Corpuscular Hemoglobin 31.9 pg (27.0-31.0); Mean Corpuscular Volume 103.5 fL (78.0-98.0); Mean Platelet Volume 10.7 fL (7.4-10.4); Platelet Count 162 10x3/uL (130-400); RBC Distribution Width 18.2 % (11.5-14.5); Red Blood Cell (RBC) Count 2.85 mill/uL (4.70-6.10)
[2024-03-04 04:58] LABS: Anion Gap 15 mmol/L (10-20); BUN (Urea Nitrogen) 47 mg/dL (8.4-25.7); Calc. Creatinine Clearance 10 mL/min (70-130); Calcium 8.1 mg/dL (7.8-10.44); Carbon Dioxide 31 mmol/L (23-31); Chloride 94 mmol/L (98-107); Estimated GFR 8; Glucose 94 mg/dL (83-110); Potassium 4.1 mmol/L (3.5-5.1); Sodium 136 mmol/L (136-145)
[2024-03-04] MEDS ORDERED: predniSONE 20 MG TAB PO SCH (08:00)
[2024-03-04] MEDS: Sevelamer Carbonate 800 MG TAB PO SCH (08:04)
[2024-03-04] MEDS: predniSONE 5 MG TAB PO SCH (08:04)
[2024-03-04] MEDS: Folic Acid 1 MG TAB PO SCH (08:04)
[2024-03-04] MEDS: Carvedilol 25 MG TAB PO SCH (08:04)
[2024-03-04] MEDS: Enoxaparin 30 MG (0.3 mL) SYRINGE SC SCH (08:04)
[2024-03-04] MEDS ORDERED: Non-Formulary Item 1 EACH (Fluticasone/Umeclidin/Vilanter [Trelegy Ellipta 100-62.5-25] 1 INH SCH (09:00)
[2024-03-04] MEDS: NIFEdipine XL 60 MG ER.TAB PO SCH (09:43)
[2024-03-04] MEDS: Doxycycline 100 MG CAP PO SCH (09:43)
[2024-03-04] MEDS: Dronedarone HCl 400 MG TAB PO SCH (16:28)
[2024-03-04] MEDS: Tamsulosin HCl 0.4 MG CAP PO SCH (21:16)
[2024-03-05 05:04] LABS: #Basophils 0.04 10x3/uL (0.0-0.2); %Basophils 0.4 % (0.0-1.0); %Eosinophils 0.3 % (0.0-10.0); %Lymphocytes 26.1 % (21.0-51.0); %Monocytes 10.6 % (0.0-10.0); %Neutrophils 61.9 % (42.0-75.0); Hematocrit 30.6 % (42.0-52.0); Hemoglobin 9.6 g/dL (14.0-18.0); Mean Corpuscular HGB CONC 31.4 g/dL (32.0-36.0); Mean Corpuscular Hemoglobin 32.5 pg (27.0-31.0); Mean Corpuscular Volume 103.7 fL (78.0-98.0); Mean Platelet Volume 10.3 fL (7.4-10.4); Platelet Count 158 10x3/uL (130-400); RBC Distribution Width 18.3 % (11.5-14.5); Red Blood Cell (RBC) Count 2.95 mill/uL (4.70-6.10)
[2024-03-05 05:21] LABS: Anion Gap 21 mmol/L (10-20); BUN (Urea Nitrogen) 78 mg/dL (8.4-25.7); Calc. Creatinine Clearance 7 mL/min (70-130); Calcium 7.9 mg/dL (7.8-10.44); Carbon Dioxide 22 mmol/L (23-31); Chloride 95 mmol/L (98-107); Estimated GFR 5; Glucose 111 mg/dL (83-110); Magnesium 2.4 mg/dL (1.6-2.6); Potassium 4.3 mmol/L (3.5-5.1); Sodium 134 mmol/L (136-145)
[2024-03-05 08:12] LABS: HBSAB Concentration Less than 8.00 mIU/mL; Hep B Core Total Ab NONREACTIVE (NonReactive); Hep B Surf AB NONREACTIVE (NonReactive)
[2024-03-05 08:13] LABS: Hep C IgG Ab NONREACTIVE S/CO (NonReactive); Hep C Index 0.07 S/CO (0-0.79)
[2024-03-05 09:00] VITALS: BP 153/72; TEMP 98
[2024-03-05 11:12] LABS: HBsAg Index 0.18 S/CO (0-0.99); Hep B Surf Ag Non-Reactive S/CO (NonReactive)
[2024-03-05] MEDS: Heparin 5,000 UNITS/ML VIAL SC SCH (12:55)
[2024-03-05] MEDS: dilTIAZem 30 MG TAB PO SCH (14:00)
[2024-03-05] MEDS: predniSONE 20 MG TAB PO SCH (14:00)
[2024-03-05] MEDS: EPOETIN ALFA-EPBX (ESRD) 10,000 UNITS/ML VIAL IVP SCH (14:02)
[2024-03-05] MEDS: Carvedilol 25 MG TAB PO SCH (17:06)
[2024-03-06] MEDS ORDERED: cloNIDine 0.1mg/24 Hour PATCH TD SCH (09:00)
== END 2024-03-05 19:12 | disposition home or self-care (01) ==
LOC: ERS 13:47 → SUATTDRO 13:47 → OBS 16:59
PROVIDERS: ADMIT Internal Medicine; ATTEND Family Medicine
DX: I48.91 Unspecified atrial fibrillation (principal); E78.5 Hyperlipidemia, unspecified; I25.10 Atherosclerotic heart disease of native coronary artery without angina pectoris; N18.6 End stage renal disease; I12.9 Hypertensive chronic kidney disease with stage 1 through stage 4 chronic kidney disease, or unspecified chronic kidney disease; D63.1 Anemia in chronic kidney disease; R60.0 Localized edema; Z99.2 Dependence on renal dialysis; Z79.82 Long term (current) use of aspirin; Z79.899 Other long term (current) drug therapy; Z79.01 Long term (current) use of anticoagulants; J44.1 Chronic obstructive pulmonary disease with (acute) exacerbation; J96.11 Chronic respiratory failure with hypoxia; J18.9 Pneumonia, unspecified organism; E88.01 Alpha-1-antitrypsin deficiency
CPT/HCPCS: 71045; 71275; 80048 ×2; 82962; 83735 ×2; 83880; 84484 ×2; 85025 ×2; 85379; 85610; 85730; 86704; 86706; 86803; 87340; 93005; 94640 ×6; 94760; 96372; 96374; 96375; 99285; G0378 ×4; J0456; J0696; J1650; J7050; Q5105; Q9967; 36415; 36416; 80053; 84443; 90935; G0257; J1644; J7512; J7620